=== PATIENT | female | born 1985 | race Caucasian/White ===

== ENCOUNTER 2020-01-03 23:29 | Emergency (ER) | payer OTHER, MEDICAID, SELFPAY ==
[2020-01-03 23:34] VITALS: BP 131/86; PULSE 135; RESP 16; TEMP 36.2; O2SAT 96
--- NOTE | 2020-01-03 23:47 | ED.NAVMDI ---
HPI - Nausea/Vomiting/Diarrhea General Stated complaint: n/v, 9 weeks Time Seen by Provider: 01/03/20 23:44 Source: patient and RN notes reviewed Mode of arrival: ambulatory Limitations: no limitations History of Present Illness HPI Narrative: A 34 y/o female, who is 9 weeks gravid, presents to the ED with worsening N/V for the past week. She states that this is her second but that during her last one her N/V was not nearly as severe. She reports associated sore throat, decreased urine output, chills, and diaphoresis. She notes that eating and drinking aggravates her pain. She also notes that her LNMP was on 11/01/2019. She denies any ABD pain, diarrhea, vaginal bleeding, vaginal discharge, dysuria, rhinorrhea, nasal congestion, fevers, or SOB. MD elicited complaint: nausea and vomiting Onset (ago): week(s) (1) Associated nausea: Yes Associated abdominal pain: No Location of pain: none Exacerbating factors: eating (and drinking) Associated symptoms: diaphoresis and other (sore throat, decreased urine output, and chills) Related Data Allergies Allergy/AdvReac Type Severity Reaction Status Date / Time No Known Allergies Allergy Unverified 01/03/20 23:37 Review of Systems Review of Systems: All systems reviewed & are unremarkable except as noted in HPI and below Constitutional: Constitutional: Reports chills, Denies fever(s) and Reports other (diaphoresis) ENT: Denies nasal congestion, Denies nasal discharge and Reports sore throat Respiratory: Respiratory: Denies dyspnea Gastrointestinal: Gastrointestinal: Denies abdominal pain, Denies diarrhea, Reports nausea and Reports vomiting Genitourinary: Genitourinary: Denies abnormal vaginal bleeding, Denies dysuria, Denies vaginal discharge and Reports other (decreased urine output) PMFSH Past Medical History Medical History Healthy female Surgical History Surgical History No history of previous surgery Social History Social History Smoking status: Never smoker Exam Const: General: cooperative, no acute distress and alert Nutritional Appearance: well nourished Orientation/consciousness: patient oriented x3 Limitations: no limitations HENMT: Mouth: Yes lip normal and Yes dry mucous membranes (slightly) Resp: Effort & Inspection: normal respiratory effort Auscultation: clear to auscultation bilaterally Cardio: Rate: tachycardic Rhythm: regular rhythm Heart sounds: no murmurs GI: GI Palp: Yes Soft to palpation and No Tenderness to palpation present (GI) Auscultation: normal bowel sounds Skin: General skin exam: normal color Neuro: General: patient oriented x3 Cognition (Neuro): normal cognition Speech: normal speech Extrem: General: normal to inspection, full ROM and no clubbing, cyanosis or edema Psych: Mental Status: mental status grossly normal Affect: normal affect Attitude: cooperative Course Course Emergency Course: Patient given 3 L of IV fluid with 1 L containing dextrose 5% due to significant ketones and acidosis noted on chemistry. Patient tachycardic, but feeling much improvement in her symptoms and heart rate did decrease significantly with IV fluids. Heart rate at time of discharge instructions low 100s. Patient tolerating oral hydration without difficulty. Patient up to the bathroom a few times with good urine output. Will discharge home. Advised importance of close [employer]IST follow-up and to call the office for seen in the morning. Vital Signs Vital signs: Vital Signs Temperature 97.2 F L 01/03/20 23:34 Pulse Rate 135 H 01/03/20 23:34 Respiratory Rate 16 01/03/20 23:34 Blood Pressure 131/86 01/03/20 23:34 Pulse Oximetry 96 01/03/20 23:34 Temperature 97.2 F L 01/03/20 23:34 Pulse Rate 114 H 01/04/20 00:10 Respiratory Rate 16 01/03/20 23:34 Blood Pressure 119/81
[2020-01-04] MEDS: METOCLOPRAMIDE HCL INJ 10 MG/2 ML VIAL IV PUSH (00:05)
[2020-01-04] MEDS: LACTATED RINGERS 1,000 ML 999 ML IV CONT ×2 (00:05)
[2020-01-04 00:09] VITALS: BP 111/70; PULSE 105
[2020-01-04 00:10] VITALS: BP 100/61; BP 119/81; PULSE 102; PULSE 114
[2020-01-04 00:27] LABS: Basophils Percent Auto 0.2 % (0.2-1.2); Hematocrit 41.6 % (37.0-47.0); Hemoglobin 14.4 g/dL (12.0-15.0); Immature Granulocyte Absolute 0.04 K/mm3 (0.00-0.031); Immature Granulocyte Percent A 0.3 % (0-0.5); Lymphocytes Absolute Auto 1.88 K/mm3 (0.9-3.2); Lymphocytes Percent Auto 15.6 % (18.3-44.2); Mean Corpuscular HGB Conc 34.6 g/dl (32-36); Mean Corpuscular Hemoglobin 30.4 pg (26-34); Mean Corpuscular Volume 87.8 fl (80-100); Mean Platelet Volume 10.9 fl (7.4-10.4); Monocytes Absolute Auto 0.5 K/mm3 (0.1-0.6); Monocytes Percent Auto 3.9 % (2.6-8.5); Neutrophils Absolute Auto 9.6 K/mm3 (1.3-6.7); Platelet Count Result 242 k/mm3 (150-375); Red Blood Count 4.74 M/mm3 (4.2-5.4); Red Cell Distribution Width 11.6 % (11.5-14.5); White Blood Count 12.1 K/mm3 (4.5-10.0)
[2020-01-04 00:30] LABS: Alanine Aminotransferase 45 U/L (4-35); Albumin Level 4.6 g/dL (3.5-5.1); Alkaline Phosphatase 66 U/L (38-126); Aspartate Amino Transferase 31 U/L (14-36); Bilirubin,Total 2.1 mg/dL (0.2-1.3); Blood Urea Nitrogen 6 mg/dL (7-17); Calcium 9.9 mg/dL (8.4-10.2); Carbon Dioxide 16 mmol/L (22-30); Chloride 102 mmol/L (98-107); Estimated Glomerular Filt Rate > 60; Glucose 97 mg/dL (65-105); Potassium 3.7 mmol/L (3.4-5.0); Sodium 133 mmol/L (137-145)
[2020-01-04 00:40] LABS: Add Urine Microscopic? YES; Appearance Urine Clear (Clear); Bacteria Urine Trace /hpf; Bilirubin Urine Negative (Negative); Blood Urine 1+ (Negative); Color Urine Amber (Yellow); Glucose Urine UA Negative (Negative); Ketones Urine 2+ mg/dL (Negative); Leukocyte Esterase Ur Trace LEU/UL (Negative); Mucus Urine Rare /lpf; Nitrate Urine Negative (Negative); Protein Urine 2+ mg/dL (Negative); RBC Urine 0-2 /hpf (0-2); Specific Grav Ur 1.026 (1.001-1.035); Squamous Epithelial Cell Urine Moderate /hpf (Few)
[2020-01-04] MEDS: DEXTROSE 5%/LACTATED RINGERS 1,000 ML 1000 ML IV CONT (01:03)
[2020-01-04 02:50] VITALS: BP 111/80; PULSE 97; RESP 18; O2SAT 98
== END 2020-01-04 02:52 | disposition home or self-care (01) ==
PROVIDERS: Emergency Provider Emergency Medicine
DX: O21.9 Vomiting of pregnancy, unspecified (principal); O99.281 Endocrine, nutritional and metabolic diseases complicating pregnancy, first trimester; E86.0 Dehydration; Z3A.09 9 weeks gestation of pregnancy
CPT/HCPCS: 36415; 80053; 81001; 85025; 87086; 87088; 96361; 96374; 99284; J2765; J7120; J7121

== ENCOUNTER 2020-01-07 08:26 | Emergency (ER) | payer OTHER, MEDICAID, SELFPAY ==
[2020-01-07] VITALS (15 sets, daily range): BP systolic 94–123; BP diastolic 67–92; PULSE 84–155; RESP 13–24; TEMP 36.2; O2SAT 97–100
--- NOTE | ~2020-01-07 | US_ITS ---
EXAMINATION: US OB <= 14 weeks fetus DATE: 01/07/2020 INDICATION: Vaginal bleeding in . TECHNIQUE: Real-time transabdominal pelvic ultrasound was performed. COMPARISON: None. FINDINGS: The uterus measures 11.3 x 6.5 x 8.0 cm. There is an intrauterine gestational sac. The crown r ump length measures 3.4 cm, which correlates with an estimated gestational age of 10 weeks and 2 day( s) (+/-) 6 day(s). heart motion is identified measuring 180 beats per minute (bpm) by M-mode Do ppler. The right ovary measures 3.0 x 1.8 x 2.7 cm. The left ovary measures 2.2 x 1.2 x 2.4 cm. There is no free fluid in the pelvis. IMPRESSION: 1. Single living intrauterine gestation with estimated date of delivery of 08/02/2020. Reviewed, dictated and finalized at location A.
--- NOTE | 2020-01-07 08:57 | ED.NAVMDI ---
HPI - Nausea/Vomiting/Diarrhea General Chief complaint: Vaginal Bleeding Stated complaint: 10 wks preg/vag bleeding/vomiting blood Time Seen by Provider: 01/07/20 08:33 Source: patient Mode of arrival: ambulatory Limitations: no limitations History of Present Illness HPI Narrative: Patient that is 10 weeks gravid, presents with chief complaint of persistent vomiting due to . Patient states that her vomiting keeps her from being able to keep down fluids or fluids. Patient reports that food exacerbates her symptoms. Patient was prescribed Reglan at her last visit to this ER 01-03-20. Patient states that she has attempted to take the Reglan however she vomits it back up. Patient states that her throat is sore and she has noticed a few streaks of blood in her vomit. Patient denies persistently vomiting blood. Patient states she was not prescribed any rectal suppositories. Patient states that she called the DYNAMICIST office but was told that she would not be able to see Dr. Salas sooner than 2 weeks but she was opted to see Dr. Avery to which she declined. Patient states she has not had an DYNAMICIST appointment or an ultrasound to evaluate the status of her fetus. Patient states that yesterday she began having light vaginal bleeding and cramping. Patient reports the bleeding was bright red in color and when she stood up she noticed a few very small blood clots. Patient is actually had to use 2 menstrual pads yesterday. She denies of bleeding behavior today. Patient states that this is her third 1 resulting in live 1 resulting in miscarriage. Related Data Allergies Allergy/AdvReac Type Severity Reaction Status Date / Time No Known Allergies Allergy Verified 01/07/20 08:43 Review of Systems Review of Systems: Narrative: CONSTITUTIONAL: Denies fever, chills, or sweats. EYES: Denies visual changes, redness, or discharge. ENT: Denies rhinorrhea, congestion, sore throat, or otalgia. CARDIOVASCULAR: Denies chest pain, palpitations, or edema. RESPIRATORY: Denies cough or dyspnea. GASTROINTESTINAL: Reports nausea, vomiting, denies abdominal pain or diarrhea. GENITOURINARY: Reports vaginal bleeding and cramping denies dysuria or hematuria. SKIN: Denies rash or itching. MUSCULOSKELETAL: Denies back pain, joint pain, or myalgia. NEUROLOGIC: Denies headache, numbness, dizziness, or weakness. PSYCHIATRIC: Denies anxiety or depression. [facility] Social History Social History Smoking status: Never smoker Gender identity (if verbalized by the patient): Female Exam Narrative: Exam Narrative: GENERAL: Well-appearing, well-nourished, and in no acute distress. Patient is not actively vomiting. Patient up and ambulating around room prior to evaluation. HEAD: Normocephalic, atraumatic. EYES: PERRLA and EOMI. ENT: Nares clear, no rhinorrhea or epistaxis. Mucous membranes moist. Oropharynx without tonsillar hypertrophy exudate or other lesions. Bilateral TMs pearly samuels nonbulging. Mucous membranes dry. No signs of any blood noted to the patient oropharynx. NECK: Range of motion intact. No outward signs of injury. CHEST: Clear to auscultation. No respiratory distress. No wheezes rales or rhonchi HEART: Tachycardic. no murmur heard. Normal peripheral pulses. ABDOMEN: Soft, nontender, nondistended, normal active bowel sounds. EXTREMITIES: Normal range of motion. No edema. SKIN: Warm, dry, no rash. NEURO: No focal deficits. Alert and oriented x3. PSYCH: Normal mood and affect. Course Course Emergency Course: Patient is very orthostatic. Fluids initiated. Reviewed patient's note from 01/02-07/17 and she was at that time as well and received 3 liters of fluid prior to discharge. Vital Signs Vital signs: Vital Signs Temperature 97.1 F L 01/07/20 08:37 Pulse Rate 133 H 01/07/20 08:37 Respiratory Rate 23 H 01/07/20 08:37 Blood Pressure 115/92 H 01/07/20 08:37 Pulse Oximetry 99
[2020-01-07 09:09] LABS: Basophils Percent Auto 0.2 % (0.2-1.2); Hematocrit 42.7 % (37.0-47.0); Hemoglobin 14.8 g/dL (12.0-15.0); Immature Granulocyte Absolute 0.03 K/mm3 (0.00-0.031); Immature Granulocyte Percent A 0.3 % (0-0.5); Lymphocytes Absolute Auto 1.61 K/mm3 (0.9-3.2); Lymphocytes Percent Auto 15.8 % (18.3-44.2); Mean Corpuscular HGB Conc 34.7 g/dl (32-36); Mean Corpuscular Hemoglobin 30.5 pg (26-34); Mean Corpuscular Volume 87.9 fl (80-100); Mean Platelet Volume 10.9 fl (7.4-10.4); Monocytes Absolute Auto 0.4 K/mm3 (0.1-0.6); Monocytes Percent Auto 4.2 % (2.6-8.5); Neutrophils Absolute Auto 8.1 K/mm3 (1.3-6.7); Neutrophils Percent Auto 79.5 % (45.5-73.1); Platelet Count Result 228 k/mm3 (150-375); Red Blood Count 4.86 M/mm3 (4.2-5.4); Red Cell Distribution Width 11.8 % (11.5-14.5); White Blood Count 10.2 K/mm3 (4.5-10.0)
[2020-01-07] MEDS: METOCLOPRAMIDE HCL INJ 10 MG/2 ML VIAL IV PUSH (09:44)
[2020-01-07] MEDS: SODIUM CHLORIDE 0.9% IV 1,000 ML 999 ML IV CONT ×2 (09:45→11:34)
--- NOTE | 2020-01-07 11:20 | PC.NURSE ---
This RN called again, about adding on CMP. Lab states I'll remind her again about adding it on.
[2020-01-07 11:32] LABS: Alanine Aminotransferase 76 U/L (4-35); Albumin Level 4.5 g/dL (3.5-5.1); Alkaline Phosphatase 71 U/L (38-126); Aspartate Amino Transferase 51 U/L (14-36); Bilirubin,Total 1.3 mg/dL (0.2-1.3); Blood Urea Nitrogen 4 mg/dL (7-17); Calcium 9.7 mg/dL (8.4-10.2); Carbon Dioxide 14 mmol/L (22-30); Chloride 102 mmol/L (98-107); Estimated Glomerular Filt Rate > 60; Glucose 88 mg/dL (65-105); Potassium 3.9 mmol/L (3.4-5.0); Sodium 133 mmol/L (137-145)
--- NOTE | 2020-01-07 11:34 | PC.NURSE ---
Pt refused D5 infusion, states that she does not want to stay here for 5 hours for infusion. EDP was notified.
[2020-01-07 12:22] LABS: Add Urine Microscopic? YES; Appearance Urine Cloudy (Clear); Bacteria Urine Trace /hpf; Bilirubin Urine Negative (Negative); Blood Urine 3+ (Negative); Color Urine Yellow (Yellow); Glucose Urine UA Negative (Negative); Ketones Urine 2+ mg/dL (Negative); Leukocyte Esterase Ur Negative LEU/UL (Negative); Mucus Urine Few /lpf; Nitrate Urine Negative (Negative); Protein Urine 2+ mg/dL (Negative); Specific Grav Ur 1.024 (1.001-1.035); Squamous Epithelial Cell Urine Few /hpf (Few); Urobilinogen Urine Negative mg/dL (<2.0)
== END 2020-01-07 13:18 | disposition home or self-care (01) ==
PROVIDERS: Physician Assistant; Emergency Provider Emergency Medicine
DX: O21.0 Mild hyperemesis gravidarum (principal); O20.9 Hemorrhage in early pregnancy, unspecified; Z3A.10 10 weeks gestation of pregnancy
CPT/HCPCS: 36415; 76801; 80053; 81001; 84702; 85025; 96361; 96374; 99284; J2765; J7030

== ENCOUNTER 2020-12-20 09:45 | Outpatient (CLI) | payer OTHER, SELFPAY ==
[2020-12-20 10:16] VITALS: BP 150/92; PULSE 89
[2020-12-20 10:29] LABS: Basophils Percent Auto 0.1 % (0.2-1.2); Eosinophils Absolute Auto 0.1 K/mm3 (0-0.3); Eosinophils Percent Auto 0.6 % (0-4.4); Hematocrit 36.9 % (37.0-47.0); Hemoglobin 12.6 g/dL (12.0-15.0); Immature Granulocyte Absolute 0.07 K/mm3 (0.00-0.031); Immature Granulocyte Percent A 0.9 % (0-0.5); Lymphocytes Absolute Auto 1.44 K/mm3 (0.9-3.2); Lymphocytes Percent Auto 18.3 % (18.3-44.2); Mean Corpuscular HGB Conc 34.1 g/dl (32-36); Mean Corpuscular Hemoglobin 30.7 pg (26-34); Mean Platelet Volume 10.9 fl (7.4-10.4); Monocytes Absolute Auto 0.5 K/mm3 (0.1-0.6); Monocytes Percent Auto 5.9 % (2.6-8.5); Neutrophils Absolute Auto 5.8 K/mm3 (1.3-6.7); Neutrophils Percent Auto 74.2 % (45.5-73.1); Platelet Count Result 164 k/mm3 (150-375); Red Cell Distribution Width 13.5 % (11.5-14.5); White Blood Count 7.9 K/mm3 (4.5-10.0)
[2020-12-20 10:31] VITALS: BP 144/88; PULSE 81
[2020-12-20 10:40] LABS: Alanine Aminotransferase 9 U/L (4-35); Albumin Level 3.2 g/dL (3.5-5.1); Alkaline Phosphatase 89 U/L (38-126); Anion Gap 3 mmol/L (8-16); Aspartate Amino Transferase 19 U/L (14-36); Bilirubin,Total 0.6 mg/dL (0.2-1.3); Blood Urea Nitrogen 4 mg/dL (7-17); Carbon Dioxide 24 mmol/L (22-30); Chloride 107 mmol/L (98-107); Estimated Glomerular Filt Rate > 60; Glucose 78 mg/dL (65-105); Potassium 3.9 mmol/L (3.4-5.0); Sodium 134 mmol/L (137-145); Uric Acid 2.7 mg/dL (2.5-7.5)
[2020-12-20 10:46] VITALS: BP 134/94; PULSE 83
[2020-12-20 11:01] VITALS: BP 134/90; PULSE 88
[2020-12-20 11:16] VITALS: BP 143/90; PULSE 84
[2020-12-20 11:18] LABS: Creatinine Urine 61.9 mg/dL; Total Protein Urine Random 38 mg/dL; Ur Ttl Prot Creatinine Ratio 0.61 mg/mg (0-0.20)
--- NOTE | 2020-12-20 11:30 | PC.NURSE ---
Called Jax Pineda CNM with lab results and BPs. Informed of variable noted on tracing, but since reactive. Gestational age of 29.6weeks.
[2020-12-20 11:31] VITALS: BP 152/93; PULSE 72
== END 2020-12-20 11:40 | disposition home or self-care (01) ==
LOC: ANHOBOP 09:51 → ANHOBPP 10:02
PROVIDERS: Advanced Practice Midwife; Visit Provider Obstetrics & Gynecology
DX: O13.9 Gestational [pregnancy-induced] hypertension without significant proteinuria, unspecified trimester (principal); Z3A.00 Weeks of gestation of pregnancy not specified
CPT/HCPCS: 36415; 59025; 80053; 82570; 84156; 84550; 85025; 99199

== ENCOUNTER 2020-12-21 16:16 | Outpatient (NON) | payer OTHER, SELFPAY ==
[2020-12-21 16:37] VITALS: BMI 35.2
[2020-12-21 18:49] LABS: Collection Time Urine 24 HOURS
[2020-12-21 18:51] LABS: Patient Weight 186 Lbs; Total Volume 24 Hour Urine 1000 ml
[2020-12-21 18:57] LABS: Total Protein Urine 24 Hr 290 MG/DAY (28-141); Total Protein Urine Random 29 mg/dL
[2020-12-21 18:59] LABS: Creatinine Clearance Urine 90.8 ml/min (75-125)
== END 2020-12-21 16:17 ==
LOC: ANHOBOP 16:25
PROVIDERS: Visit Provider Advanced Practice Midwife
DX: O13.9 Gestational [pregnancy-induced] hypertension without significant proteinuria, unspecified trimester (principal); Z3A.00 Weeks of gestation of pregnancy not specified
CPT/HCPCS: 81050; 82575; 84156

== ENCOUNTER 2020-12-27 17:42 | Inpatient (IN) | payer OTHER, SELFPAY ==
[2020-12-27] VITALS (37 sets, daily range): BP systolic 118–170; BP diastolic 72–118; PULSE 73–93; TEMP 36.6; BMI 34.5
--- NOTE | 2020-12-27 16:16 | OBADM ---
This patient, Triny Finch, admitted to the OB room OB Post 117 for observation. Patient/family oriented to hospital policies and general routines including ID bracelet, bed and alarms, visiting hours, pain management, procedures, bathroom and other care routines, personal items, smoking policy, room service/diet, and visiting hours. Patient/Family are encouraged to report perceived risks to care and to ask questions if they do not understand what they are told or what they should do.
--- NOTE | 2020-12-27 16:50 | PC.NURSE ---
Jax Pineda CNM notified in person of patient elevated BP on arrival. Order to follow hypertension protocol and notify Dr. Hector.
--- NOTE | 2020-12-27 16:53 | PC.NURSE ---
Dr. Hector notified of patient elevated BP's on arrival. Order for 200mg of oral labetalol in addition to hypertension protocol medications.
[2020-12-27 16:57] LABS: Basophils Percent Auto 0.2 % (0.2-1.2); Eosinophils Absolute Auto 0.1 K/mm3 (0-0.3); Eosinophils Percent Auto 0.6 % (0-4.4); Hematocrit 34.7 % (37.0-47.0); Hemoglobin 11.9 g/dL (12.0-15.0); Immature Granulocyte Absolute 0.04 K/mm3 (0.00-0.031); Immature Granulocyte Percent A 0.5 % (0-0.5); Lymphocytes Absolute Auto 1.73 K/mm3 (0.9-3.2); Lymphocytes Percent Auto 20.4 % (18.3-44.2); Mean Corpuscular HGB Conc 34.3 g/dl (32-36); Mean Corpuscular Hemoglobin 30.4 pg (26-34); Mean Corpuscular Volume 88.7 fl (80-100); Mean Platelet Volume 11.1 fl (7.4-10.4); Monocytes Absolute Auto 0.4 K/mm3 (0.1-0.6); Monocytes Percent Auto 5.2 % (2.6-8.5); Neutrophils Absolute Auto 6.2 K/mm3 (1.3-6.7); Neutrophils Percent Auto 73.1 % (45.5-73.1); Platelet Count Result 159 k/mm3 (150-375); Red Blood Count 3.91 M/mm3 (4.2-5.4); Red Cell Distribution Width 13.4 % (11.5-14.5); White Blood Count 8.5 K/mm3 (4.5-10.0)
[2020-12-27 17:04] LABS: Add Urine Microscopic? YES; Appearance Urine Clear (Clear); Bacteria Urine Trace /hpf; Bilirubin Urine Negative (Negative); Blood Urine Negative (Negative); Color Urine Straw (Yellow); Glucose Urine UA Negative (Negative); Ketones Urine 1+ mg/dL (Negative); Leukocyte Esterase Ur 2+ LEU/UL (NEGATIVE); Mucus Urine Rare /lpf; Nitrate Urine Negative (Negative); Protein Urine 2+ mg/dL (Negative); Specific Grav Ur 1.008 (1.001-1.035); Squamous Epithelial Cell Urine Many /hpf (Few); Urobilinogen Urine Negative mg/dL (<2.0)
[2020-12-27 17:07] LABS: Creatinine Urine 39.4 mg/dL; Total Protein Urine Random 70 mg/dL; Ur Ttl Prot Creatinine Ratio 1.78 mg/mg (0-0.20)
[2020-12-27 17:15] LABS: Alanine Aminotransferase 10 U/L (4-35); Albumin Level 3.1 g/dL (3.5-5.1); Alkaline Phosphatase 95 U/L (38-126); Anion Gap 7 mmol/L (8-16); Aspartate Amino Transferase 19 U/L (14-36); Bilirubin,Total 0.6 mg/dL (0.2-1.3); Blood Urea Nitrogen 4 mg/dL (7-17); Calcium 8.4 mg/dL (8.4-10.2); Carbon Dioxide 21 mmol/L (22-30); Chloride 107 mmol/L (98-107); Estimated Glomerular Filt Rate > 60; Glucose 88 mg/dL (65-105); Potassium 3.4 mmol/L (3.4-5.0); Sodium 135 mmol/L (137-145); Uric Acid 2.6 mg/dL (2.5-7.5)
[2020-12-27] MEDS: LABETALOL HCL INJ 100 MG/20 ML VIAL 20 MG IV PUSH ×2 (17:20→18:03)
[2020-12-27] MEDS: LABETALOL HCL 100 MG TABLET 200 MG PO (17:28)
--- NOTE | 2020-12-27 17:30 | PM.IMHP ---
H&P: HPI History of Present Illness Date/Time: 12/27/20 17:30 Chief Complaint: hypertension Narrative: Triny Finch is a 35 year old female who has been monitored for elevated blood pressure and proteinuria. Denies mariano, visual changes and epigastric pain, mild bilateral ankle edema. Pt present to LD after office bp 170/110, rpted manually and was the same, continued severe range pressure in LD, labs ordered and no changes, pcr continues to be elevated, rpt 24 hour urine in progress. Review of Systems Review of Systems: All systems reviewed & are unremarkable except as noted in HPI and below [facility] Past Medical History Medical History (Updated 12/27/20 @ 17:34 by Dara Pineda CNM) Healthy female Surgical History Surgical History No history of previous surgery Social History Social History Smoking status: Never smoker Gender identity (if verbalized by the patient): Female Meds Home Medications and Allergies Home Medications Medication Instructions Recorded Confirmed Type metoclopramide HCl [Reglan] 10 mg PO Q6H PRN #20 tablet 01/04/20 Rx metoclopramide HCl 10 mg PO Q6H PRN #30 tablet 01/07/20 Rx ondansetron 4 mg PO Q8H PRN #30 tablet 01/07/20 Rx Allergies Allergy/AdvReac Type Severity Reaction Status Date / Time No Known Allergies Allergy Verified 01/07/20 08:43 Vital Signs Vital Signs - 24 hr 12/27/20 16:40 12/27/20 16:45 12/27/20 16:46 Pulse Rate 93 85 86 Blood Pressure 144/118 H 163/98 H 165/102 H 12/27/20 17:16 12/27/20 17:20 12/27/20 17:23 Pulse Rate 74 86 81 Blood Pressure 161/105 H 150/102 H 12/27/20 17:26 12/27/20 17:28 12/27/20 17:30 Pulse Rate 88 85 Blood Pressure 151/100 H 170/91 H Exam Const: General: cooperative Nutritional Appearance: average body habitus Orientation/consciousness: patient oriented x3 Neuro: General: patient oriented x3 Speech: normal speech Extrem: General: normal to inspection Psych: Appearance: grossly normal Affect: normal affect Attitude: cooperative Thought process: Normal thought process present Thought content: Yes Normal thought content present Insight: Good insight present (Psych) Judgement: Good judgement present (Psych) H&P: Results Labs Labs: Short CBC 12/27/20 Range/Units 16:46 WBC 8.5 (4.5-10.0) K/mm3 Hgb 11.9 L (12.0-15.0) g/dL Hct 34.7 L (37.0-47.0) % Plt Count 159 (150-375) k/mm3 BMP 12/27/20 16:46 Sodium 135 L Potassium 3.4 Chloride 107 Carbon Dioxide 21 L BUN 4 L Creatinine 0.40 L Glucose 88 Calcium 8.4 Liver Function 12/27/20 Range/Units 16:46 Total Bilirubin 0.6 (0.2-1.3) mg/dL AST 19 (14-36) U/L ALT 10 (4-35) U/L Alkaline Phosphatase 95 (38-126) U/L Albumin 3.1 L (3.5-5.1) g/dL Urine 12/27/20 Range/Units 16:46 Urine Color Straw (Yellow) Urine Appearance Clear (Clear) Urine pH 7.0 (5.0-9.0) Ur Specific [place] 1.008 (1.001-1.035) Urine Protein 2+ H (Negative) mg/dL Urine Glucose (UA) Negative (Negative) mg/dL Assessment and Plan Assessment and plan (1) Gestational hypertension affecting second : Code(s): O13.9 - Gestational [-induced] hypertension without significant proteinuria, unspecified trimester Status: Acute (2) Proteinuria affecting : Qualifiers: Trimester: third trimester Qualified Code(s): O12.13 - Gestational proteinuria, third trimester Code(s): O12.10 - Gestational proteinuria, unspecified trimester Status: Acute Additional Plan 1. GHTN 20mg IV labetalol 200mg oral labetalol 2. proteinuria Plan rpt 24 hour urine Plan to monitor overnight and will continue to adjust medications, spoke with and reviewed.
--- NOTE | 2020-12-27 17:35 | PC.NURSE ---
Jax Pineda CNM at patient bedside to discuss plan of care. Plan of care discussed with patient, patient states understanding and denies questions.
--- NOTE | 2020-12-27 17:58 | PC.NURSE ---
Notified Jax Pineda CNM on patient elevated BPs, order to give 20mg IV labetalol now.
--- NOTE | 2020-12-27 18:40 | PC.NURSE ---
Pt resting quietly without complaints. Pt. denies any headache, blurred vision or abdominal pain. Vital signs as noted.
[2020-12-27] MEDS: ZOLPIDEM TARTRATE (*CRX) 5 MG TABLET PO (22:16)
[2020-12-28] VITALS (19 sets, daily range): BP systolic 115–149; BP diastolic 66–98; PULSE 72–92; TEMP 36.6; BMI 34.9
--- NOTE | 2020-12-28 04:54 | PC.NURSE ---
Pt is sleeping well. Voices no complaints or concerns.
[2020-12-28] MEDS: LABETALOL HCL 100 MG TABLET 200 MG PO ×2 (05:26→13:18)
--- NOTE | 2020-12-28 07:24 | PC.NURSE ---
0700--Pt denies OBREGON, blurred vision, epigastric pain. Mild edema in ankles bilaterally. No complaints noted.
--- NOTE | 2020-12-28 07:30 | PC.NURSE ---
0725--Jax Pineda at bedside to discuss plan of care. Will consult with MFM and follow up.
--- NOTE | 2020-12-28 07:30 | PM.OBPNLAB ---
Pain Control Date/time seen: 12/28/20 07:30 Pt rested comfortably over night with normotensive bp, this am after labetalol pressures around 140'/90's. pt denies headache, visual changes, epigastric pain. physical exam trace bilateral pedal/ankle edema a/p: HTN proteinuria growth 15% (HC <10%) at [facility] last month continue to monitor bp, if stable consider discharge this evening with labetalol TID
[2020-12-28] MEDS: BETAMETHASONE SOD PHOS/ACETATE 30 MG/5 ML VIAL 12 MG IM (09:32)
[2020-12-28] MEDS: MULTIVIT/MIN/PREN/FOL AC/IRON TABLET 1 TAB PO (09:33)
--- NOTE | 2020-12-28 12:04 | PC.NURSE ---
1145--Pt sleeping comfortably. No interventions at this time.
--- NOTE | 2020-12-28 14:34 | PC.NURSE ---
1430--Kareen called for update; BP's reported. Additional orders will be given after 24hour urine is turned in.
[2020-12-28 17:03] LABS: Collection Time Urine 24 HOURS
[2020-12-28 17:04] LABS: Patient Weight 185 Lbs; Total Volume 24 Hour Urine 2200 ml
[2020-12-28 17:12] LABS: Creatinine Clearance Urine 215.1 ml/min (75-125); Creatinine Urine 59.3 mg/dL
[2020-12-28 17:40] LABS: Total Protein Urine 24 Hr 1144 MG/DAY (28-141); Total Protein Urine Random 52 mg/dL
--- NOTE | 2020-12-30 07:28 | PM.OBDSVD ---
DS: Admitting Diagnosis Admitting Diagnosis Admitting Diagnosis: HTN OB - DS: Summary OB Procedures : NST and PTL Mgmt OB Procedures Intrapartum: Other OB Procedures: : Other Time Spent with Patient Time attestation: Total time spent providing and/or coordinating discharge services: Discharge Plan Discharge Attending physician on discharge: Soledad Hector Consulting providers: Dara Pineda Discharging Clinician: Dara Pineda Anticipated Discharge Date/Time: 12/28/20 17:29 Patient Disposition: Home, Self-Care Activity: as tolerated Diet: as tolerated and regular Stand Alone Forms: General Discharge Information Follow-up/Referrals: Soledad Hector MD [Physician] - Discharge Medications: Continued ondansetron 4 mg tablet,disintegrating 4 mg PO Q8H PRN (Reason: nausea and vomiting) Qty: 30 RF: 0 metoclopramide HCl 10 mg tablet 10 mg PO Q6H PRN (Reason: nausea and vomiting) Qty: 30 RF: 0 metoclopramide HCl [Reglan] 10 mg tablet 10 mg PO Q6H PRN (Reason: nausea and vomiting) Qty: 20 RF: 0 Date of admission: 12/28/20 10:19 Primary Care Provider: PHYSICIAN,OUTPLACEMENT CONSULTANT Admitting Provider: Soledad Hector Attending physician on admission: Soledad Hector Condition: Stable
== END 2020-12-28 17:31 | disposition home or self-care (01) | DRG 566 ==
LOC: ANHOBOP 17:42 → ANHOBPP 17:42
PROVIDERS: Advanced Practice Midwife; Admitting Provider Obstetrics & Gynecology; Visit Provider Obstetrics & Gynecology
DX: O13.3 Gestational [pregnancy-induced] hypertension without significant proteinuria, third trimester (principal); O12.13 Gestational proteinuria, third trimester; Z3A.30 30 weeks gestation of pregnancy
CPT/HCPCS: 36415; 59025; 80053; 81001; 81050; 82570; 82575; 84156; 84550; 85025; 87086; A9270; J0702

== ENCOUNTER 2020-12-29 09:35 | Outpatient (RCR) | payer OTHER, SELFPAY ==
[2020-12-29] MEDS: BETAMETHASONE SOD PHOS/ACETATE 30 MG/5 ML VIAL 12 MG IM (09:46)
== END 2021-01-02 08:29 | disposition home or self-care (01) ==
LOC: ANHOBOP 09:35
PROVIDERS: Visit Provider Obstetrics & Gynecology
DX: O36.8990 Maternal care for other specified fetal problems, unspecified trimester, not applicable or unspecified (principal); Z3A.00 Weeks of gestation of pregnancy not specified
CPT/HCPCS: 96372; J0702

== ENCOUNTER 2021-01-04 13:41 | Inpatient (IN) | payer OTHER, SELFPAY ==
[2021-01-04] VITALS (24 sets, daily range): BP systolic 136–170; BP diastolic 81–106; PULSE 79–94; TEMP 36.8–37.3
--- NOTE | ~2021-01-04 | US_ITS ---
EXAMINATION: 1. US OB follow up w BPP 2. US umbilical doppler DATE: 01/11/2021 08:06 INDICATION: Preeclampsia. Third trimester. TECHNIQUE: Real-time pelvic ultrasound was performed. COMPARISON: None. FINDINGS: There is a single living fetus in transverse lie with head to the mother's right. The placenta is an terior. heart rate is 149 beats per minute (bpm). The amniotic fluid index is 11.1 cm, which is normal. The following biometric data were obtained: Biparietal diameter (BPD): 8.2 cm; head circumference (HC): 29.2 cm; abdominal circumference (AC): 26 .7 cm; femur length (FL): 5.8 cm. These measurements are concordant. Estimated weight is 1676 g +/- 251 g, which correlates with 4th percentile when 03/01/21 is used as estimated date of delivery. As single measurements, these parameters are each equal to the following estimated gestational ages: BPD: 32 weeks 6 days. HC: 32 weeks 1 days. AC: 30 weeks 6 days. FL: 30 weeks 3 days. estimated gestational age based solely on measurements from this exam is 31 weeks 4 days +/- 2 weeks 1 days. Biophysical profile performed by the technologist: breathing (30 sec sustained breathing in 30 minutes): 2 out of 2 movement (3 gross body movements in 30 minutes): 2 out of 2 tone (one episode of [id number] limb movement): 2 out of 2 Amniotic fluid pocket (2 cm): 2 out of 2 Total score: 8 out of 8 Umbilical artery pulsed Doppler demonstrates a peak systolic to end-diastolic velocity ratio (S/D rat io) of 3.3 (5th percentile = 2.11, 95th percentile = 3.67). IMPRESSION: 1. Single living fetus in transverse lie. 2. Small for gestational age. Estimated weight is 1676 g +/- 251 g, which correlates with 4th p ercentile when 03/01/21 is used as estimated date of delivery. 3. Biophysical profile 8 out of 8. 4. Normal umbilical artery Doppler. Reviewed, dictated and finalized at location A. IMPRESSION: 1. Single living fetus in transverse lie. 2. Small for gestational age. Estimated weight is 1676 g +/- 251 g, which correlates with 4th percentile when 03/01/21 is used as estimated date of delive ry. 3. Biophysical profile 8 out of 8. 4. Normal umbilical artery Doppler.
[2021-01-04 14:20] LABS: Basophils Percent Auto 0.1 % (0.2-1.2); Eosinophils Absolute Auto 0.1 K/mm3 (0-0.3); Eosinophils Percent Auto 0.5 % (0-4.4); Hematocrit 39.6 % (37.0-47.0); Hemoglobin 13.2 g/dL (12.0-15.0); Lymphocytes Percent Auto 16.1 % (18.3-44.2); Mean Corpuscular HGB Conc 33.3 g/dl (32-36); Mean Corpuscular Hemoglobin 30.1 pg (26-34); Mean Corpuscular Volume 90.2 fl (80-100); Mean Platelet Volume 11.1 fl (7.4-10.4); Monocytes Absolute Auto 0.5 K/mm3 (0.1-0.6); Monocytes Percent Auto 5.3 % (2.6-8.5); Neutrophils Absolute Auto 7.6 K/mm3 (1.3-6.7); Platelet Count Result 174 k/mm3 (150-375); Red Blood Count 4.39 M/mm3 (4.2-5.4); Red Cell Distribution Width 13.6 % (11.5-14.5); White Blood Count 9.9 K/mm3 (4.5-10.0)
[2021-01-04 14:28] LABS: Add Urine Microscopic? YES; Appearance Urine Cloudy (Clear); Bacteria Urine Trace /hpf; Bilirubin Urine Negative (Negative); Blood Urine Negative (Negative); Color Urine Yellow (Yellow); Glucose Urine UA Negative (Negative); Ketones Urine Negative (Negative); Leukocyte Esterase Ur 3+ LEU/UL (NEGATIVE); Mucus Urine Few /lpf; Nitrate Urine Negative (Negative); Protein Urine 3+ mg/dL (Negative); Specific Grav Ur 1.013 (1.001-1.035); Squamous Epithelial Cell Urine Many /hpf (Few); Transitional Epi Cells Urine Rare /hpf (None Seen); Urobilinogen Urine Negative mg/dL (<2.0); WBC Urine 16-20 /hpf (0-3)
[2021-01-04 14:30] LABS: Creatinine Urine 58.1 mg/dL
[2021-01-04 14:32] LABS: Alanine Aminotransferase 12 U/L (4-35); Albumin Level 3.6 g/dL (3.5-5.1); Alkaline Phosphatase 115 U/L (38-126); Anion Gap 7 mmol/L (8-16); Aspartate Amino Transferase 20 U/L (14-36); Bilirubin,Total 0.9 mg/dL (0.2-1.3); Blood Urea Nitrogen 6 mg/dL (7-17); Calcium 9.3 mg/dL (8.4-10.2); Carbon Dioxide 23 mmol/L (22-30); Chloride 105 mmol/L (98-107); Estimated Glomerular Filt Rate > 60; Glucose 67 mg/dL (65-105); Potassium 4.3 mmol/L (3.4-5.0); Sodium 135 mmol/L (137-145); Uric Acid 2.6 mg/dL (2.5-7.5)
--- NOTE | 2021-01-04 15:14 | PC.NURSE ---
Called Jax Pineda CNM with pt status. Informed of lab results, BPs and reactive tracing. Will talk to Dr. Hector and call back.
--- NOTE | 2021-01-04 15:23 | PC.NURSE ---
Informed Jax Pineda CNM that pt states that she missed her 1330 dose of Labetalol. Instructed to give dose and monitor.
[2021-01-04 15:27] LABS: Total Protein Urine Random 262 mg/dL; Ur Ttl Prot Creatinine Ratio 4.51 mg/mg (0-0.20)
[2021-01-04] MEDS: LABETALOL HCL 100 MG TABLET 200 MG PO ×2 (15:27→21:16)
--- NOTE | 2021-01-04 15:35 | PC.NURSE ---
Jax Pineda CNM called. Discussed plan of care with Dr. Hector. Continue to monitor. Will come over to discuss plan of care with pt.
--- NOTE | 2021-01-04 17:00 | PC.NURSE ---
Jax Pineda CNM ok to leave [facility] and [facility] off.
--- NOTE | 2021-01-04 18:00 | PM.IMHP ---
H&P: HPI History of Present Illness Date/Time: 01/04/21 18:00 Chief Complaint: Preeclampsia Narrative: pt is a 35 y.o. female at 32 weeks gestation. diagnosed Preeclampsia, currently on 200mg labetalol BID,severe range pressures in office, per [facility] rec inpatient at [facility] until delivery at 34 weeks, pt today has refused transfer along with her . Labs stable, except for 24 hour urine >1000, bp currently 130's/80's, aand asymptomatic Review of Systems Review of Systems: All systems reviewed & are unremarkable except as noted in HPI and below [facility] Past Medical History Medical History (Updated 12/27/20 @ 17:34 by Dara Pineda CNM) Healthy female Surgical History Surgical History No history of previous surgery Social History Social History Smoking status: Never smoker Gender identity (if verbalized by the patient): Female Meds Home Medications and Allergies Home Medications Medication Instructions Recorded Confirmed Type metoclopramide HCl [Reglan] 10 mg PO Q6H PRN #20 tablet 01/04/20 12/27/20 Rx metoclopramide HCl 10 mg PO Q6H PRN #30 tablet 01/07/20 12/27/20 Rx ondansetron 4 mg PO Q8H PRN #30 tablet 01/07/20 12/27/20 Rx Allergies Allergy/AdvReac Type Severity Reaction Status Date / Time No Known Allergies Allergy Verified 01/07/20 08:43 Vital Signs Vital Signs - 24 hr 01/04/21 14:12 01/04/21 14:16 01/04/21 14:31 Temperature Pulse Rate 84 85 90 Blood Pressure 157/100 H 170/102 H 155/106 H 01/04/21 14:46 01/04/21 15:01 01/04/21 15:16 Temperature Pulse Rate 94 93 90 Blood Pressure 151/91 H 154/92 H 159/100 H 01/04/21 15:27 01/04/21 15:31 01/04/21 15:46 Temperature Pulse Rate 93 87 82 Blood Pressure 158/99 H 166/102 H 01/04/21 16:01 01/04/21 16:16 01/04/21 16:22 Temperature 37.3 C Pulse Rate 83 83 Blood Pressure 168/97 H 167/99 H 01/04/21 16:31 01/04/21 16:46 01/04/21 17:01 Temperature Pulse Rate 87 86 86 Blood Pressure 165/96 H 159/99 H 136/89 Exam Const: General: cooperative Limitations: no limitations Back/Spine/Pelvis: Back: no CVA tenderness Skin: General skin exam: normal color and no rashes or lesions noted Neuro: General: patient oriented x3 Speech: normal speech Gait exam (Neuro): Normal gait present Extrem: General: normal to inspection Left lower extremity: normal to inspection Psych: Appearance: grossly normal Affect: Anxious affect present Attitude: cooperative Thought content: Yes Normal thought content present Insight: Good insight present (Psych) Judgement: Good judgement present (Psych) H&P: Results Labs Labs: Short CBC 01/04/21 Range/Units 14:00 WBC 9.9 (4.5-10.0) K/mm3 Hgb 13.2 (12.0-15.0) g/dL Hct 39.6 (37.0-47.0) % Plt Count 174 (150-375) k/mm3 BMP 01/04/21 14:00 Sodium 135 L Potassium 4.3 Chloride 105 Carbon Dioxide 23 BUN 6 L Creatinine 0.40 L Glucose 67 Calcium 9.3 Liver Function 01/04/21 Range/Units 14:00 Total Bilirubin 0.9 (0.2-1.3) mg/dL AST 20 (14-36) U/L ALT 12 (4-35) U/L Alkaline Phosphatase 115 (38-126) U/L Albumin 3.6 (3.5-5.1) g/dL Urine 01/04/21 Range/Units 14:00 Urine Color Yellow (Yellow) Urine Appearance Cloudy H (Clear) Urine pH 6.0 (5.0-9.0) Ur Specific [place] 1.013 (1.001-1.035) Urine Protein 3+ H (Negative) mg/dL Urine Glucose (UA) Negative (Negative) mg/dL Assessment and Plan Additional Plan 1. 32 weeks gestation 2. Preeclampsia -labetalol TID -continue to monitor bp, q12 hour labs, monitor sxs Currently pt refuses transfer to [facility]
[2021-01-04] MEDS: ZOLPIDEM TARTRATE (*CRX) 5 MG TABLET PO (22:06)
[2021-01-05] VITALS (19 sets, daily range): BP systolic 126–163; BP diastolic 82–101; PULSE 78–93; RESP 16–18; TEMP 36.7–37.2; O2SAT 99
--- NOTE | 2021-01-05 00:10 | PM.IMHP ---
H&P: HPI History of Present Illness Date/Time: 01/05/21 00:10 Chief Complaint: preeclampsia PMFSH Past Medical History Medical History (Updated 01/05/21 @ 00:10 by Dara Pineda CNM) Healthy female Surgical History Surgical History No history of previous surgery Social History Social History Smoking status: Never smoker Gender identity (if verbalized by the patient): Female Meds Home Medications and Allergies Home Medications Medication Instructions Recorded Confirmed Type metoclopramide HCl [Reglan] 10 mg PO Q6H PRN #20 tablet 01/04/20 12/27/20 Rx metoclopramide HCl 10 mg PO Q6H PRN #30 tablet 01/07/20 12/27/20 Rx ondansetron 4 mg PO Q8H PRN #30 tablet 01/07/20 12/27/20 Rx Allergies Allergy/AdvReac Type Severity Reaction Status Date / Time No Known Allergies Allergy Verified 01/07/20 08:43 Vital Signs Vital Signs - 24 hr 01/04/21 14:12 01/04/21 14:16 01/04/21 14:31 Temperature Pulse Rate 84 85 90 Blood Pressure 157/100 H 170/102 H 155/106 H 01/04/21 14:46 01/04/21 15:01 01/04/21 15:16 Temperature Pulse Rate 94 93 90 Blood Pressure 151/91 H 154/92 H 159/100 H 01/04/21 15:27 01/04/21 15:31 01/04/21 15:46 Temperature Pulse Rate 93 87 82 Blood Pressure 158/99 H 166/102 H 01/04/21 16:01 01/04/21 16:16 01/04/21 16:22 Temperature 37.3 C Pulse Rate 83 83 Blood Pressure 168/97 H 167/99 H 01/04/21 16:31 01/04/21 16:46 01/04/21 17:01 Temperature Pulse Rate 87 86 86 Blood Pressure 165/96 H 159/99 H 136/89 01/04/21 18:01 01/04/21 19:00 01/04/21 19:01 Temperature 36.9 C Pulse Rate 83 79 Blood Pressure 138/86 154/81 H 01/04/21 20:01 01/04/21 21:01 01/04/21 21:16 Temperature Pulse Rate 83 80 80 Blood Pressure 156/103 H 166/81 H 01/04/21 22:01 01/04/21 22:43 Temperature Pulse Rate 82 90 Blood Pressure 145/84 H 145/99 H H&P: Results Labs Labs: Short CBC 01/04/21 Range/Units 14:00 WBC 9.9 (4.5-10.0) K/mm3 Hgb 13.2 (12.0-15.0) g/dL Hct 39.6 (37.0-47.0) % Plt Count 174 (150-375) k/mm3 BMP 01/04/21 14:00 Sodium 135 L Potassium 4.3 Chloride 105 Carbon Dioxide 23 BUN 6 L Creatinine 0.40 L Glucose 67 Calcium 9.3 Liver Function 01/04/21 Range/Units 14:00 Total Bilirubin 0.9 (0.2-1.3) mg/dL AST 20 (14-36) U/L ALT 12 (4-35) U/L Alkaline Phosphatase 115 (38-126) U/L Albumin 3.6 (3.5-5.1) g/dL Urine 01/04/21 Range/Units 14:00 Urine Color Yellow (Yellow) Urine Appearance Cloudy H (Clear) Urine pH 6.0 (5.0-9.0) Ur Specific [place] 1.013 (1.001-1.035) Urine Protein 3+ H (Negative) mg/dL Urine Glucose (UA) Negative (Negative) mg/dL Assessment and Plan Assessment and plan (1) Preeclampsia: Code(s): O14.90 - Unspecified pre-eclampsia, unspecified trimester Status: Acute
[2021-01-05 02:20] LABS: Hematocrit 35.4 % (37.0-47.0); Hemoglobin 11.9 g/dL (12.0-15.0); Mean Corpuscular HGB Conc 33.6 g/dl (32-36); Mean Corpuscular Hemoglobin 30.1 pg (26-34); Mean Corpuscular Volume 89.6 fl (80-100); Platelet Count Result 158 k/mm3 (150-375); Red Blood Count 3.95 M/mm3 (4.2-5.4); Red Cell Distribution Width 13.6 % (11.5-14.5); White Blood Count 9.3 K/mm3 (4.5-10.0)
[2021-01-05 02:32] LABS: Alanine Aminotransferase 11 U/L (4-35); Albumin Level 3.1 g/dL (3.5-5.1); Alkaline Phosphatase 98 U/L (38-126); Anion Gap 4 mmol/L (8-16); Aspartate Amino Transferase 19 U/L (14-36); Bilirubin,Total 0.8 mg/dL (0.2-1.3); Blood Urea Nitrogen 8 mg/dL (7-17); Calcium 9.2 mg/dL (8.4-10.2); Carbon Dioxide 24 mmol/L (22-30); Chloride 105 mmol/L (98-107); Estimated Glomerular Filt Rate > 60; Glucose 74 mg/dL (65-105); Potassium 3.6 mmol/L (3.4-5.0); Sodium 133 mmol/L (137-145)
[2021-01-05] MEDS: LABETALOL HCL 100 MG TABLET 200 MG PO ×3 (06:28→22:29)
--- NOTE | 2021-01-05 08:00 | PC.NURSE ---
Dr. Hector notified regarding elevated blood pressure at 0614, patient reporting that she takes her labetalol q8h, previous RN updating schedule change, and repeat blood pressure at 0729. Orders received for change in lab draw times. Dr. Hector to bedside to assess patient and discuss POC with patient.
--- NOTE | 2021-01-05 08:12 | PM.OBPNVD ---
OB - PN: Subj Subjective Date/time seen: 01/05/21 08:12 patient denies headache, blurry vision, epigastric pain. She denies any swelling. She denies any chest pain shortness of breath. She denies any nausea, vomiting, fever, chills. She reports good movement. She denies any contractions, loss of fluid, vaginal bleeding. OB - PN: Obj Data Labs CBC & Chem 7: 01/05/21 02:02 01/05/21 02:02 Labs: Laboratory Results - last 24 hr 01/04/21 01/04/21 01/04/21 14:00 14:00 14:00 WBC 9.9 RBC 4.39 Hgb 13.2 Hct 39.6 MCV 90.2 MCH 30.1 MCHC 33.3 RDW 13.6 Plt Count 174 MPV 11.1 H Immature Gran % (Auto) 1.0 H Neut % (Auto) 77.0 H Lymph % (Auto) 16.1 L [place] % (Auto) 5.3 Eos % (Auto) 0.5 Baso % (Auto) 0.1 L Lymph # (Auto) 1.60 [place] # (Auto) 0.5 Eos # (Auto) 0.1 Baso # (Auto) 0.0 Abs Immat Gran (auto) 0.10 H Absolute Neuts (auto) 7.6 H Absolute Nucleated RBC 0.0 Nucleated RBC % 0.0 Sodium 135 L Potassium 4.3 Chloride 105 Carbon Dioxide 23 Anion Gap 7 L BUN 6 L Creatinine 0.40 L Estim Creat Clear Calc Not Reportable Estimated GFR > 60 Glucose 67 Uric Acid 2.6 Calcium 9.3 Total Bilirubin 0.9 AST 20 ALT 12 Alkaline Phosphatase 115 Total Protein 7.0 Albumin 3.6 Urine Color Urine Appearance Urine pH Ur Specific [place] Urine Protein Urine Glucose (UA) Urine Ketones Ur Blood (Man) Urine Nitrate Urine Bilirubin Urine Urobilinogen Ur Leukocyte Esterase Urine RBC Urine WBC Ur Squamous Epith Cells Ur Transition Epith Cell Urine Bacteria Hyaline Casts Urine Mucus U Random Total Protein 262 Urine Creatinine 58.1 Protein/Creat Ratio 2 4.51 H 01/04/21 01/05/21 01/05/21 14:00 02:02 02:02 WBC 9.3 RBC 3.95 L Hgb 11.9 L Hct 35.4 L MCV 89.6 MCH 30.1 MCHC 33.6 RDW 13.6 Plt Count 158 MPV 11.0 H Immature Gran % (Auto) Neut % (Auto) Lymph % (Auto) [place] % (Auto) Eos % (Auto) Baso % (Auto) Lymph # (Auto) [place] # (Auto) Eos # (Auto) Baso # (Auto) Abs Immat Gran (auto) Absolute Neuts (auto) Absolute Nucleated RBC Nucleated RBC % Sodium 133 L Potassium 3.6 Chloride 105 Carbon Dioxide 24 Anion Gap 4 L BUN 8 Creatinine 0.40 L Estim Creat Clear Calc Not Reportable Estimated GFR > 60 Glucose 74 Uric Acid 3.0 Calcium 9.2 Total Bilirubin 0.8 AST 19 ALT 11 Alkaline Phosphatase 98 Total Protein 6.0 L Albumin 3.1 L Urine Color Yellow Urine Appearance Cloudy H Urine pH 6.0 Ur Specific [place] 1.013 Urine Protein 3+ H Urine Glucose (UA) Negative Urine Ketones Negative Ur Blood (Man) Negative Urine Nitrate Negative Urine Bilirubin Negative Urine Urobilinogen Negative Ur Leukocyte Esterase 3+ H Urine RBC 11-20 H Urine WBC 16-20 H Ur Squamous Epith Cells Many H Ur Transition Epith Cell Rare Urine Bacteria Trace Hyaline Casts 1-2 Urine Mucus Few H U Random Total Protein Urine Creatinine Protein/Creat Ratio 2 OB - PN A/P Assessment and Plan (1) Preeclampsia: Code(s): O14.90 - Unspecified pre-eclampsia, unspecified trimester Status: Acute Assessment and Plan: This patient is a 35-year-old 4 para 1 at 32 weeks 1 day with preeclampsia. Her preeclampsia labs are normal, her blood pressures are reasonable with 200 mg of labetalol t.i.d.. She is reassuring status. We have agreed to observe her here [facility]. It was recommended that she be transferred to same areas until delivery at 34 weeks. Patient declined transfer. Time Spent With Patient Time: Total time spent is greater than 50% in coordination of care (as documented) at patient's floor/unit and/or coun
[2021-01-05 09:24] LABS: Mean Platelet Volume 10.9 fl (7.4-10.4); Platelet Count Result 165 k/mm3 (150-375)
[2021-01-05 09:37] LABS: Alanine Aminotransferase 13 U/L (4-35); Albumin Level 3.3 g/dL (3.5-5.1); Alkaline Phosphatase 107 U/L (38-126); Anion Gap 4 mmol/L (8-16); Aspartate Amino Transferase 20 U/L (14-36); Blood Urea Nitrogen 6 mg/dL (7-17); Calcium 8.7 mg/dL (8.4-10.2); Carbon Dioxide 25 mmol/L (22-30); Chloride 105 mmol/L (98-107); Estimated Glomerular Filt Rate > 60; Glucose 79 mg/dL (65-105); Potassium 3.9 mmol/L (3.4-5.0); Sodium 134 mmol/L (137-145); Uric Acid 3.1 mg/dL (2.5-7.5)
[2021-01-05 21:39] LABS: Mean Platelet Volume 10.4 fl (7.4-10.4); Platelet Count Result 177 k/mm3 (150-375)
[2021-01-05 21:51] LABS: Alanine Aminotransferase 14 U/L (4-35); Albumin Level 3.4 g/dL (3.5-5.1); Alkaline Phosphatase 106 U/L (38-126); Anion Gap 4 mmol/L (8-16); Aspartate Amino Transferase 20 U/L (14-36); Bilirubin,Total 0.8 mg/dL (0.2-1.3); Blood Urea Nitrogen 7 mg/dL (7-17); Calcium 9.6 mg/dL (8.4-10.2); Carbon Dioxide 26 mmol/L (22-30); Chloride 105 mmol/L (98-107); Estimated Glomerular Filt Rate > 60; Glucose 92 mg/dL (65-105); Potassium 3.6 mmol/L (3.4-5.0); Sodium 135 mmol/L (137-145); Uric Acid 2.9 mg/dL (2.5-7.5)
[2021-01-05] MEDS: ZOLPIDEM TARTRATE (*CRX) 5 MG TABLET PO (22:30)
[2021-01-06] VITALS (20 sets, daily range): BP systolic 114–157; BP diastolic 70–103; PULSE 74–101; TEMP 36.6; O2SAT 100
--- NOTE | 2021-01-06 06:00 | OBADM ---
This patient, Triny Finch, admitted to the OB room OB Post 116 for observation. Patient/family oriented to hospital policies and general routines including ID bracelet, bed and alarms, visiting hours, pain management, procedures, bathroom and other care routines, personal items, smoking policy, room service/diet, and visiting hours. Patient/Family are encouraged to report perceived risks to care and to ask questions if they do not understand what they are told or what they should do.
[2021-01-06] MEDS: LABETALOL HCL 100 MG TABLET 200 MG PO ×3 (06:30→22:42)
--- NOTE | 2021-01-06 07:49 | PM.OBPNVD ---
OB - PN: Subj Subjective Date/time seen: 01/06/21 07:49 Pt doing well, Bp increased at time of next dose of labetalol, no severe range pressures, denies headache, visual changes, swelling, epigastric pain. OB - PN: Obj Data Labs CBC & Chem 7: 01/05/21 21:33 01/05/21 21:33 Labs: Laboratory Results - last 24 hr 01/05/21 01/05/21 01/05/21 09:01 09:01 21:33 Plt Count 165 177 MPV 10.9 H 10.4 Sodium 134 L Potassium 3.9 Chloride 105 Carbon Dioxide 25 Anion Gap 4 L BUN 6 L Creatinine 0.40 L Estim Creat Clear Calc Not Reportable Estimated GFR > 60 Glucose 79 Uric Acid 3.1 Calcium 8.7 Total Bilirubin 1.0 AST 20 ALT 13 Alkaline Phosphatase 107 Total Protein 6.0 L Albumin 3.3 L 01/05/21 21:33 Plt Count MPV Sodium 135 L Potassium 3.6 Chloride 105 Carbon Dioxide 26 Anion Gap 4 L BUN 7 Creatinine 0.40 L Estim Creat Clear Calc Not Reportable Estimated GFR > 60 Glucose 92 Uric Acid 2.9 Calcium 9.6 Total Bilirubin 0.8 AST 20 ALT 14 Alkaline Phosphatase 106 Total Protein 7.0 Albumin 3.4 L OB - PN A/P Time Spent With Patient Time: Total time spent is greater than 50% in coordination of care (as documented) at patient's floor/unit and/or counseling patient: continue plan of care, reviewed with Dr. Hector, may draw labs Q24 hours, monitor bp and symptoms Review of Systems Review of Systems: All systems reviewed & are unremarkable except as noted in HPI and below Exam Const: General: cooperative Nutritional Appearance: average body habitus Limitations: no limitations Psych: Affect: normal affect Attitude: cooperative Thought process: Normal thought process present Thought content: Yes Normal thought content present Insight: Good insight present (Psych) Judgement: Good judgement present (Psych)
[2021-01-06 21:09] LABS: Mean Platelet Volume 11.1 fl (7.4-10.4); Platelet Count Result 172 k/mm3 (150-375)
[2021-01-06 21:24] LABS: Alanine Aminotransferase 13 U/L (4-35); Albumin Level 3.4 g/dL (3.5-5.1); Alkaline Phosphatase 104 U/L (38-126); Anion Gap 4 mmol/L (8-16); Aspartate Amino Transferase 19 U/L (14-36); Bilirubin,Total 0.9 mg/dL (0.2-1.3); Blood Urea Nitrogen 8 mg/dL (7-17); Calcium 9.3 mg/dL (8.4-10.2); Carbon Dioxide 26 mmol/L (22-30); Chloride 105 mmol/L (98-107); Estimated Glomerular Filt Rate > 60; Glucose 108 mg/dL (65-105); Potassium 3.8 mmol/L (3.4-5.0); Sodium 135 mmol/L (137-145); Uric Acid 2.8 mg/dL (2.5-7.5)
[2021-01-06] MEDS: ZOLPIDEM TARTRATE (*CRX) 5 MG TABLET PO (22:42)
[2021-01-07] VITALS (23 sets, daily range): BP systolic 122–152; BP diastolic 77–105; PULSE 83–98; RESP 16–18; TEMP 36.6–37.1; O2SAT 100
--- NOTE | 2021-01-07 03:36 | PC.NURSE ---
Pt has been sleeping quietly. Up to void. No complaints at this time.
[2021-01-07] MEDS: LABETALOL HCL 100 MG TABLET 200 MG PO ×3 (06:32→22:01)
--- NOTE | 2021-01-07 13:19 | PM.OBPNVD ---
OB - PN: Subj Subjective Date/time seen: 01/07/21 13:19 Patient denies any OBREGON/BV/EP. She denies and worsening edema. Good movement. OB - PN: Obj Data Labs CBC & Chem 7: 01/06/21 21:04 01/06/21 21:04 Labs: Laboratory Results - last 24 hr 01/06/21 01/06/21 21:04 21:04 Plt Count 172 MPV 11.1 H Sodium 135 L Potassium 3.8 Chloride 105 Carbon Dioxide 26 Anion Gap 4 L BUN 8 Creatinine 0.40 L Estim Creat Clear Calc Not Reportable Estimated GFR > 60 Glucose 108 H Uric Acid 2.8 Calcium 9.3 Total Bilirubin 0.9 AST 19 ALT 13 Alkaline Phosphatase 104 Total Protein 6.0 L Albumin 3.4 L OB - PN A/P Assessment and Plan (1) Preeclampsia: Code(s): O14.90 - Unspecified pre-eclampsia, unspecified trimester Status: Acute (2) Proteinuria affecting : Qualifiers: Trimester: third trimester Qualified Code(s): O12.13 - Gestational proteinuria, third trimester Code(s): O12.10 - Gestational proteinuria, unspecified trimester Status: Acute Assessment and Plan: to continue monitoring, considering second round of steroids before delivery and version Time Spent With Patient Time: Total time spent is greater than 50% in coordination of care (as documented) at patient's floor/unit and/or counseling patient: Exam Const: General: comfortable, no acute distress and alert Resp: Effort & Inspection: normal respiratory effort Auscultation: no crackles, no rales and no rhonchi Cardio: Rate: regular rate Heart sounds: no click, no murmurs and no rubs GI: Inspection: non-distended GI Palp: No Tenderness to palpation present (GI) Auscultation: normal bowel sounds Other: Incision - CDI Extrem: General: normal to inspection, no pedal edema and no calf tenderness
[2021-01-07 20:49] LABS: Mean Platelet Volume 10.7 fl (7.4-10.4); Platelet Count Result 180 k/mm3 (150-375)
[2021-01-07 21:02] LABS: Alanine Aminotransferase 13 U/L (4-35); Albumin Level 3.3 g/dL (3.5-5.1); Alkaline Phosphatase 103 U/L (38-126); Anion Gap 3 mmol/L (8-16); Aspartate Amino Transferase 17 U/L (14-36); Bilirubin,Total 0.9 mg/dL (0.2-1.3); Blood Urea Nitrogen 9 mg/dL (7-17); Carbon Dioxide 25 mmol/L (22-30); Chloride 106 mmol/L (98-107); Estimated Glomerular Filt Rate > 60; Glucose 103 mg/dL (65-105); Potassium 3.5 mmol/L (3.4-5.0); Sodium 134 mmol/L (137-145)
[2021-01-07] MEDS: ZOLPIDEM TARTRATE (*CRX) 5 MG TABLET PO (22:01)
[2021-01-08] VITALS (19 sets, daily range): BP systolic 114–158; BP diastolic 70–97; PULSE 76–94; RESP 16–18; TEMP 36.9–37.1; O2SAT 93–100
[2021-01-08] MEDS: LABETALOL HCL 100 MG TABLET 200 MG PO ×3 (06:22→21:43)
--- NOTE | 2021-01-08 12:01 | PM.OBPNVD ---
OB - PN: Subj Subjective Date/time seen: 01/08/21 12:01 Patient denies any OBREGON/BV/EP. She denies and worsening edema. Good movement OB - PN: Obj Data Labs CBC & Chem 7: 01/07/21 20:39 01/07/21 20:39 Labs: Laboratory Results - last 24 hr 01/07/21 01/07/21 20:39 20:39 Plt Count 180 MPV 10.7 H Sodium 134 L Potassium 3.5 Chloride 106 Carbon Dioxide 25 Anion Gap 3 L BUN 9 Creatinine 0.40 L Estim Creat Clear Calc Not Reportable Estimated GFR > 60 Glucose 103 Uric Acid 3.0 Calcium 9.0 Total Bilirubin 0.9 AST 17 ALT 13 Alkaline Phosphatase 103 Total Protein 6.0 L Albumin 3.3 L OB - PN A/P Assessment and Plan (1) Preeclampsia: Code(s): O14.90 - Unspecified pre-eclampsia, unspecified trimester Status: Acute (2) Third trimester : Code(s): Z34.93 - Encounter for supervision of normal , unspecified, third trimester Status: Acute Assessment and Plan: Stable severe preeclampsia, breech, 32 and 5/7 weeks, to deliver at 34 weeks, normal labs Time Spent With Patient Time: Total time spent is greater than 50% in coordination of care (as documented) at patient's floor/unit and/or counseling patient: Exam Const: General: comfortable, no acute distress and alert Resp: Effort & Inspection: normal respiratory effort Auscultation: no crackles, no rales and no rhonchi Cardio: Rate: regular rate Heart sounds: no click, no murmurs and no rubs GI: Inspection: non-distended GI Palp: No Tenderness to palpation present (GI) Auscultation: normal bowel sounds Other: Incision - CDI Extrem: General: normal to inspection, no pedal edema and no calf tenderness
[2021-01-08 21:32] LABS: Immature Platelet Fraction Pct 6.2 % (0.9-11.2); Platelet Count Result 178 k/mm3 (150-375)
[2021-01-08 21:39] LABS: Alanine Aminotransferase 12 U/L (4-35); Albumin Level 3.2 g/dL (3.5-5.1); Alkaline Phosphatase 103 U/L (38-126); Anion Gap 4 mmol/L (8-16); Aspartate Amino Transferase 17 U/L (14-36); Bilirubin,Total 0.8 mg/dL (0.2-1.3); Blood Urea Nitrogen 10 mg/dL (7-17); Calcium 9.4 mg/dL (8.4-10.2); Carbon Dioxide 23 mmol/L (22-30); Chloride 106 mmol/L (98-107); Estimated Glomerular Filt Rate > 60; Glucose 87 mg/dL (65-105); Potassium 3.7 mmol/L (3.4-5.0); Sodium 133 mmol/L (137-145); Uric Acid 3.4 mg/dL (2.5-7.5)
[2021-01-08] MEDS: ZOLPIDEM TARTRATE (*CRX) 5 MG TABLET PO (21:43)
[2021-01-09] VITALS (18 sets, daily range): BP systolic 116–156; BP diastolic 71–98; PULSE 81–91; RESP 18; TEMP 36.9–37.3; O2SAT 99
[2021-01-09] MEDS: LABETALOL HCL 100 MG TABLET 200 MG PO ×3 (06:13→21:45)
--- NOTE | 2021-01-09 08:24 | PM.OBPNVD ---
OB - PN: Subj Subjective Date/time seen: 01/09/21 08:24 No OBREGON/BV/EP , no edema, no sob or cp OB - PN: Obj Data Labs CBC & Chem 7: 01/08/21 21:19 01/08/21 21:19 Labs: Laboratory Results - last 24 hr 01/08/21 01/08/21 21:19 21:19 Plt Count 178 MPV 11.0 H % Immature Plt Fraction 6.2 Sodium 133 L Potassium 3.7 Chloride 106 Carbon Dioxide 23 Anion Gap 4 L BUN 10 Creatinine 0.50 L Estim Creat Clear Calc Not Reportable Estimated GFR > 60 Glucose 87 Uric Acid 3.4 Calcium 9.4 Total Bilirubin 0.8 AST 17 ALT 12 Alkaline Phosphatase 103 Total Protein 6.0 L Albumin 3.2 L OB - PN A/P Assessment and Plan (1) Third trimester : Code(s): Z34.93 - Encounter for supervision of normal , unspecified, third trimester Status: Acute (2) Preeclampsia: Code(s): O14.90 - Unspecified pre-eclampsia, unspecified trimester Status: Acute Assessment and Plan: stable, cont. obs., considering version and 2nd round of steroids Time Spent With Patient Time: Total time spent is greater than 50% in coordination of care (as documented) at patient's floor/unit and/or counseling patient: Exam Const: General: comfortable, no acute distress and alert Resp: Effort & Inspection: normal respiratory effort Auscultation: no crackles, no rales and no rhonchi Cardio: Rate: regular rate Heart sounds: no click, no murmurs and no rubs GI: Inspection: non-distended GI Palp: No Tenderness to palpation present (GI) Auscultation: normal bowel sounds Other: Incision - CDI Extrem: General: normal to inspection, no pedal edema and no calf tenderness
[2021-01-09] MEDS: ZOLPIDEM TARTRATE (*CRX) 5 MG TABLET PO (21:46)
[2021-01-09 22:01] LABS: Mean Platelet Volume 11.1 fl (7.4-10.4); Platelet Count Result 182 k/mm3 (150-375)
[2021-01-09 22:17] LABS: Alanine Aminotransferase 13 U/L (4-35); Albumin Level 3.4 g/dL (3.5-5.1); Alkaline Phosphatase 112 U/L (38-126); Anion Gap 9 mmol/L (8-16); Aspartate Amino Transferase 18 U/L (14-36); Bilirubin,Total 0.7 mg/dL (0.2-1.3); Blood Urea Nitrogen 8 mg/dL (7-17); Carbon Dioxide 22 mmol/L (22-30); Chloride 105 mmol/L (98-107); Estimated Glomerular Filt Rate > 60; Glucose 102 mg/dL (65-105); Potassium 3.5 mmol/L (3.4-5.0); Sodium 136 mmol/L (137-145); Uric Acid 3.5 mg/dL (2.5-7.5)
[2021-01-10] VITALS (15 sets, daily range): BP systolic 122–160; BP diastolic 72–105; PULSE 73–103; RESP 15–16; TEMP 36.7–37.5
[2021-01-10] MEDS: LABETALOL HCL 100 MG TABLET 200 MG PO ×3 (06:07→22:07)
--- NOTE | 2021-01-10 08:34 | P.PNOB_ITS ---
OB - PN: Subj Subjective Date/time seen: 01/10/21 08:34 patient denies headache, blurry vision, epigastric pain. She denies worsening of her swelling. She denies any nausea, vomiting, fever, chills. Denies any chest pain or shortness of breath. OB - PN: Obj Data Labs CBC & Chem 7: 01/09/21 21:56 03 21:56 Labs: Laboratory Results - last 24 hr 01/09/21 03 21:56 21:56 Plt Count 182 MPV 11.1 H Sodium 136 L Potassium 3.5 Chloride 105 Carbon Dioxide 22 Anion Gap 9 BUN 8 Creatinine 0.50 L Estim Creat Clear Calc Not Reportable Estimated GFR > 60 Glucose 102 Uric Acid 3.5 Calcium 9.0 Total Bilirubin 0.7 AST 18 ALT 13 Alkaline Phosphatase 112 Total Protein 7.0 Albumin 3.4 L OB - PN A/P Assessment and Plan (1) Third trimester : Code(s): Z34.93 - Encounter for supervision of normal , unspecified, third trimester Status: Acute (2) Preeclampsia: Code(s): O14.90 - Unspecified pre-eclampsia, unspecified trimester Status: Acute Assessment and Plan: This patient is a 35-year-old multiparous female at 32 and 6 7th weeks, with history of preeclampsia, now diagnosed with severe preeclampsia. Discussed with the patient delivery and 8 days. She has an anterior placenta and external cephalic version will not be possible. I discussed a rescue dose of steroids with Dr. Capellan. He does not believe 2nd dose or round of steroids would be appropriate. There is reassuring status. She is having NSTs multiple jil es a day. Labs are stable. To perform Doppler flow studies of umbilical artery tomorrow. Time Spent With Patient Time: Total time spent is greater than 50% in coordination of care (as documented) at patient's floor/unit and/or counseling patient: Exam Const: General: comfortable, no acute distress and alert Resp: Effort & Inspection: normal respiratory effort Auscultation: no crackles, no rales and no rhonchi Cardio: Rate: regular rate Heart sounds: no click, no murmurs and no rubs GI: Inspection: non-distended GI Palp: No Tenderness to palpation present (GI) Auscultation: normal bowel sounds Other: Incision - CDI Extrem: General: normal to inspection, no pedal edema and no calf tenderness
[2021-01-10] MEDS: MULTIVIT/MIN/PREN/FOL AC/IRON TABLET 1 TAB PO (08:50)
[2021-01-10 09:02] LABS: Mean Platelet Volume 10.9 fl (7.4-10.4); Platelet Count Result 164 k/mm3 (150-375)
[2021-01-10 09:15] LABS: Alanine Aminotransferase 11 U/L (4-35); Albumin Level 3.2 g/dL (3.5-5.1); Alkaline Phosphatase 111 U/L (38-126); Anion Gap 4 mmol/L (8-16); Aspartate Amino Transferase 17 U/L (14-36); Bilirubin,Total 0.8 mg/dL (0.2-1.3); Blood Urea Nitrogen 7 mg/dL (7-17); Calcium 8.6 mg/dL (8.4-10.2); Carbon Dioxide 23 mmol/L (22-30); Chloride 107 mmol/L (98-107); Estimated Glomerular Filt Rate > 60; Glucose 77 mg/dL (65-105); Potassium 4.3 mmol/L (3.4-5.0); Sodium 134 mmol/L (137-145); Uric Acid 3.4 mg/dL (2.5-7.5)
[2021-01-10] MEDS: ZOLPIDEM TARTRATE (*CRX) 5 MG TABLET PO (22:08)
[2021-01-11] VITALS (21 sets, daily range): BP systolic 125–173; BP diastolic 72–104; PULSE 75–100; RESP 16; TEMP 36.8–37.3
[2021-01-11] MEDS: LABETALOL HCL 100 MG TABLET 200 MG PO ×3 (06:15→21:59)
--- NOTE | 2021-01-11 07:40 | PM.OBPNVD ---
OB - PN: Subj Subjective Date/time seen: 01/11/21 07:40 pt denies, headache, visual changes, epigastric pain, swelling, bp stable, labs stable OB - PN: Obj Data Labs CBC & Chem 7: 01/10/21 08:51 01/10/21 08:51 Labs: Laboratory Results - last 24 hr 01/10/21 01/10/21 08:51 08:51 Plt Count 164 MPV 10.9 H Sodium 134 L Potassium 4.3 Chloride 107 Carbon Dioxide 23 Anion Gap 4 L BUN 7 Creatinine 0.40 L Estim Creat Clear Calc Not Reportable Estimated GFR > 60 Glucose 77 Uric Acid 3.4 Calcium 8.6 Total Bilirubin 0.8 AST 17 ALT 11 Alkaline Phosphatase 111 Total Protein 6.0 L Albumin 3.2 L OB - PN A/P Time Spent With Patient Time: Total time spent is greater than 50% in coordination of care (as documented) at patient's floor/unit and/or counseling patient:
--- NOTE | 2021-01-11 07:42 | PM.OBPNVD ---
OB - PN: Subj Subjective Date/time seen: 01/11/21 07:42 pt denies headache, visual changes, epigastric pain, bp stable, labs stable OB - PN: Obj Data Labs CBC & Chem 7: 01/10/21 08:51 01/10/21 08:51 Labs: Laboratory Results - last 24 hr 01/10/21 01/10/21 08:51 08:51 Plt Count 164 MPV 10.9 H Sodium 134 L Potassium 4.3 Chloride 107 Carbon Dioxide 23 Anion Gap 4 L BUN 7 Creatinine 0.40 L Estim Creat Clear Calc Not Reportable Estimated GFR > 60 Glucose 77 Uric Acid 3.4 Calcium 8.6 Total Bilirubin 0.8 AST 17 ALT 11 Alkaline Phosphatase 111 Total Protein 6.0 L Albumin 3.2 L OB - PN A/P Plan Comments: plan: 1. severe preeclampsia continue to monitor bp and symptoms plan us today spoke with Dr. max Time Spent With Patient Time: Total time spent is greater than 50% in coordination of care (as documented) at patient's floor/unit and/or counseling patient: Review of Systems Review of Systems: All systems reviewed & are unremarkable except as noted in HPI and below Exam Const: General: cooperative Orientation/consciousness: patient oriented x3 Resp: Effort & Inspection: normal respiratory effort GI: Inspection: normal to inspection Skin: General skin exam: normal color Neuro: General: patient oriented x3 Extrem: General: normal to inspection Psych: Appearance: grossly normal Affect: normal affect Attitude: cooperative Thought process: Normal thought process present Insight: Good insight present (Psych)
[2021-01-11] MEDS: MULTIVIT/MIN/PREN/FOL AC/IRON TABLET 1 TAB PO (09:45)
[2021-01-11 09:59] LABS: Platelet Count Result 172 k/mm3 (150-375)
[2021-01-11 10:11] LABS: Alanine Aminotransferase 13 U/L (4-35); Albumin Level 3.3 g/dL (3.5-5.1); Alkaline Phosphatase 114 U/L (38-126); Anion Gap 4 mmol/L (8-16); Aspartate Amino Transferase 18 U/L (14-36); Bilirubin,Total 0.9 mg/dL (0.2-1.3); Blood Urea Nitrogen 7 mg/dL (7-17); Calcium 8.7 mg/dL (8.4-10.2); Carbon Dioxide 21 mmol/L (22-30); Chloride 108 mmol/L (98-107); Estimated Glomerular Filt Rate > 60; Glucose 111 mg/dL (65-105); Potassium 3.8 mmol/L (3.4-5.0); Sodium 133 mmol/L (137-145); Uric Acid 3.5 mg/dL (2.5-7.5)
--- NOTE | 2021-01-11 18:45 | PC.NURSE ---
Pt eating dinner with . Denies any headache, blurred vision, epigastric pain or any other problems. Pt was transferred to new room today. Pt states she enjoyed the view with location of past room. Due to length of stay will move to room near previous.
[2021-01-11] MEDS: ZOLPIDEM TARTRATE (*CRX) 5 MG TABLET PO (21:59)
[2021-01-12] VITALS (28 sets, daily range): BP systolic 120–169; BP diastolic 72–105; PULSE 76–93; TEMP 36.5–37.3
[2021-01-12] MEDS: LABETALOL HCL 100 MG TABLET 200 MG PO (06:16)
--- NOTE | 2021-01-12 08:30 | PM.OBPNVD ---
OB - PN: Subj Subjective Date/time seen: 01/12/21 08:30 patient denies any increased swelling, blurry vision, epigastric pain. She denies any chest pain shortness of breath. She denies any nausea, vomiting, fever, chills. OB - PN: Obj Data Labs CBC & Chem 7: 01/11/21 09:47 01/11/21 09:47 Labs: Laboratory Results - last 24 hr 01/11/21 01/11/21 09:47 09:47 Plt Count 172 MPV 11.0 H Sodium 133 L Potassium 3.8 Chloride 108 H Carbon Dioxide 21 L Anion Gap 4 L BUN 7 Creatinine 0.50 L Estim Creat Clear Calc Not Reportable Estimated GFR > 60 Glucose 111 H Uric Acid 3.5 Calcium 8.7 Total Bilirubin 0.9 AST 18 ALT 13 Alkaline Phosphatase 114 Total Protein 6.0 L Albumin 3.3 L OB - PN A/P Assessment and Plan (1) Third trimester : Code(s): Z34.93 - Encounter for supervision of normal , unspecified, third trimester Status: Acute (2) Preeclampsia: Code(s): O14.90 - Unspecified pre-eclampsia, unspecified trimester Status: Acute Assessment and Plan: This patient is the 35-year-old female, multiparous, with severe preeclampsia at 33 and 1/7th week. She continued to be stable. Her labs were stable, her blood pressures are stable but are slightly labile prior to her next dose of labetalol. Regarding increase labetalol to 300 mg t.i.d.. To deliver and 6 days. Reassuring status. Normal Dopplers yesterday. (3) affected by growth restriction: Code(s): O36.5990 - Maternal care for other known or suspected poor growth, unspecified trimester, not applicable or unspecified Status: Acute Time Spent With Patient Time: Total time spent is greater than 50% in coordination of care (as documented) at patient's floor/unit and/or counseling patient: Exam Const: General: comfortable, no acute distress and alert Resp: Effort & Inspection: normal respiratory effort Auscultation: no crackles, no rales and no rhonchi Cardio: Rate: regular rate Heart sounds: no click, no murmurs and no rubs GI: Inspection: non-distended GI Palp: No Tenderness to palpation present (GI) Auscultation: normal bowel sounds Other: Incision - CDI Extrem: General: normal to inspection, no pedal edema and no calf tenderness
[2021-01-12] MEDS: LABETALOL HCL 100 MG TABLET PO (08:34)
[2021-01-12 09:15] LABS: Mean Platelet Volume 11.1 fl (7.4-10.4); Platelet Count Result 174 k/mm3 (150-375)
[2021-01-12 09:28] LABS: Alanine Aminotransferase 12 U/L (4-35); Albumin Level 3.4 g/dL (3.5-5.1); Alkaline Phosphatase 117 U/L (38-126); Anion Gap 5 mmol/L (8-16); Aspartate Amino Transferase 19 U/L (14-36); Bilirubin,Total 0.8 mg/dL (0.2-1.3); Blood Urea Nitrogen 9 mg/dL (7-17); Calcium 8.8 mg/dL (8.4-10.2); Carbon Dioxide 21 mmol/L (22-30); Chloride 108 mmol/L (98-107); Estimated Glomerular Filt Rate > 60; Glucose 79 mg/dL (65-105); Potassium 4.1 mmol/L (3.4-5.0); Sodium 134 mmol/L (137-145); Uric Acid 3.1 mg/dL (2.5-7.5)
[2021-01-12] MEDS: MULTIVIT/MIN/PREN/FOL AC/IRON TABLET 1 TAB PO (11:03)
[2021-01-12] MEDS: LABETALOL HCL 100 MG TABLET 300 MG PO ×2 (13:59→21:55)
--- NOTE | 2021-01-12 18:30 | PC.NURSE ---
Pt resting quietly and visiting with . Vital signs as noted. No complaints at this time.
[2021-01-12] MEDS: ZOLPIDEM TARTRATE (*CRX) 5 MG TABLET PO (21:58)
--- NOTE | 2021-01-12 22:00 | PC.NURSE ---
Pt states she feels like increase in swelling of lower extremities. Slight increase in edema of feet as compared to last night of caring for pt.1+ edema noted.Pt does not have headache, blurred vision or abdominal pain.
[2021-01-13] VITALS (23 sets, daily range): BP systolic 119–189; BP diastolic 74–102; PULSE 74–90; RESP 18–20; TEMP 36.6–37.7; O2SAT 98–99
[2021-01-13] MEDS: LABETALOL HCL 100 MG TABLET 300 MG PO ×3 (06:28→21:58)
--- NOTE | 2021-01-13 07:58 | PM.OBPNVD ---
OB - PN: Subj Subjective Date/time seen: 01/13/21 07:58 denies mariano, visual changes, epigastric pain, does complain of increased swelling in her ankles and face. labs rpt at 0900. no severe range bp's prior to labetalol 150's/90's. OB - PN: Obj Data Labs CBC & Chem 7: 01/12/21 09:09 01/12/21 09:09 Labs: Laboratory Results - last 24 hr 01/12/21 01/12/21 09:09 09:09 Plt Count 174 MPV 11.1 H Sodium 134 L Potassium 4.1 Chloride 108 H Carbon Dioxide 21 L Anion Gap 5 L BUN 9 Creatinine 0.40 L Estim Creat Clear Calc Not Reportable Estimated GFR > 60 Glucose 79 Uric Acid 3.1 Calcium 8.8 Total Bilirubin 0.8 AST 19 ALT 12 Alkaline Phosphatase 117 Total Protein 7.0 Albumin 3.4 L OB - PN A/P Time Spent With Patient Time: Total time spent is greater than 50% in coordination of care (as documented) at patient's floor/unit and/or counseling patient: severe preeclampsia continue to monitor bp's and sxs labs daily dr. max aware Review of Systems Review of Systems: All systems reviewed & are unremarkable except as noted in HPI and below Exam Const: General: cooperative Resp: Effort & Inspection: normal respiratory effort and able to speak in complete sentences GI: Inspection: normal to inspection : OB/external & speculum: Deferred OB/external & speculum exam Skin: General skin exam: normal color Neuro: General: patient oriented x3 Extrem: Right lower extremity: edema Details: non-pitting and 1+ Left lower extremity: ankle Psych: Appearance: grossly normal Speech and movement: Normal speech and movement present Affect: normal affect Thought process: Normal thought process present Thought content: Yes Normal thought content present
[2021-01-13] MEDS: MULTIVIT/MIN/PREN/FOL AC/IRON TABLET 1 TAB PO (09:10)
[2021-01-13 10:50] LABS: Mean Platelet Volume 10.6 fl (7.4-10.4); Platelet Count Result 152 k/mm3 (150-375)
[2021-01-13 11:04] LABS: Alanine Aminotransferase 11 U/L (4-35); Albumin Level 3.2 g/dL (3.5-5.1); Alkaline Phosphatase 106 U/L (38-126); Anion Gap 4 mmol/L (8-16); Aspartate Amino Transferase 18 U/L (14-36); Bilirubin,Total 0.6 mg/dL (0.2-1.3); Blood Urea Nitrogen 7 mg/dL (7-17); Calcium 8.8 mg/dL (8.4-10.2); Carbon Dioxide 23 mmol/L (22-30); Chloride 108 mmol/L (98-107); Estimated Glomerular Filt Rate > 60; Glucose 83 mg/dL (65-105); Potassium 3.8 mmol/L (3.4-5.0); Sodium 135 mmol/L (137-145); Uric Acid 3.2 mg/dL (2.5-7.5)
--- NOTE | 2021-01-13 18:10 | PC.NURSE ---
Pt sitting up eating pizza for supper with her .
[2021-01-13] MEDS: ZOLPIDEM TARTRATE (*CRX) 5 MG TABLET PO (21:59)
[2021-01-14] VITALS (11 sets, daily range): BP systolic 109–158; BP diastolic 73–98; PULSE 75–89; RESP 16–18; TEMP 36.4–37.2
[2021-01-14] MEDS: LABETALOL HCL 100 MG TABLET 300 MG PO ×3 (05:56→21:55)
--- NOTE | 2021-01-14 08:53 | PC.NURSE ---
Jax Pineda CRNA at bedside discussing plan of care. No new orders received.
--- NOTE | 2021-01-14 09:03 | P.PNOB_ITS ---
OB - PN: Subj Subjective Date/time seen: 01/14/21 09:03 doing well, denies headache, visual changes, epigsatric pain. has mild ankle edema bilaterally. labs at 0900, bp no change OB - PN: Obj Data Labs CBC & Chem 7: 01/13/21 10:41 01/13/21 10:41 Labs: Laboratory Results - last 24 hr 01/13/21 01/13/21 10:41 10:41 Plt Count 152 MPV 10.6 H Sodium 135 L Potassium 3.8 Chloride 108 H Carbon Dioxide 23 Anion Gap 4 L BUN 7 Creatinine 0.50 L Estim Creat Clear Calc Not Reportable Estimated GFR > 60 Glucose 83 Uric Acid 3.2 Calcium 8.8 Total Bilirubin 0.6 AST 18 ALT 11 Alkaline Phosphatase 106 Total Protein 6.0 L Albumin 3.2 L OB - PN A/P Time Spent With Patient Time: Total time spent is greater than 50% in coordination of care (as docume nted) at patient's floor/unit and/or counseling patient: continue to monitor bp and for severe features, plan cesraean section at 34 weeks, dr max aware
[2021-01-14 09:24] LABS: Mean Platelet Volume 10.9 fl (7.4-10.4); Platelet Count Result 148 k/mm3 (150-375)
[2021-01-14 09:33] LABS: Alanine Aminotransferase 11 U/L (4-35); Albumin Level 3.1 g/dL (3.5-5.1); Alkaline Phosphatase 108 U/L (38-126); Anion Gap 4 mmol/L (8-16); Aspartate Amino Transferase 18 U/L (14-36); Bilirubin,Total 0.7 mg/dL (0.2-1.3); Blood Urea Nitrogen 6 mg/dL (7-17); Calcium 8.6 mg/dL (8.4-10.2); Carbon Dioxide 25 mmol/L (22-30); Chloride 106 mmol/L (98-107); Estimated Glomerular Filt Rate > 60; Glucose 72 mg/dL (65-105); Potassium 4.2 mmol/L (3.4-5.0); Sodium 135 mmol/L (137-145); Uric Acid 3.4 mg/dL (2.5-7.5)
[2021-01-14] MEDS: MULTIVIT/MIN/PREN/FOL AC/IRON TABLET 1 TAB PO (21:55)
[2021-01-14] MEDS: ZOLPIDEM TARTRATE (*CRX) 5 MG TABLET PO (21:55)
[2021-01-15] VITALS (15 sets, daily range): BP systolic 134–163; BP diastolic 74–107; PULSE 75–90; RESP 16–18; TEMP 36.4–36.9
[2021-01-15] MEDS: LABETALOL HCL 100 MG TABLET 300 MG PO ×3 (05:58→22:02)
[2021-01-15] MEDS: MULTIVIT/MIN/PREN/FOL AC/IRON TABLET 1 TAB PO (09:10)
[2021-01-15 09:16] LABS: Mean Platelet Volume 10.6 fl (7.4-10.4); Platelet Count Result 148 k/mm3 (150-375)
[2021-01-15 09:28] LABS: Alanine Aminotransferase 11 U/L (4-35); Alkaline Phosphatase 102 U/L (38-126); Anion Gap 4 mmol/L (8-16); Aspartate Amino Transferase 17 U/L (14-36); Bilirubin,Total 0.7 mg/dL (0.2-1.3); Blood Urea Nitrogen 5 mg/dL (7-17); Calcium 8.7 mg/dL (8.4-10.2); Carbon Dioxide 24 mmol/L (22-30); Chloride 106 mmol/L (98-107); Estimated Glomerular Filt Rate > 60; Glucose 73 mg/dL (65-105); Potassium 4.1 mmol/L (3.4-5.0); Sodium 134 mmol/L (137-145); Uric Acid 3.1 mg/dL (2.5-7.5)
--- NOTE | 2021-01-15 12:09 | PM.OBPNVD ---
OB - PN: Subj Subjective Date/time seen: 01/15/21 12:09 denies headache, visual changes, epigastric pain, vs and labs no change OB - PN: Obj Data Labs CBC & Chem 7: 01/15/21 09:08 01/15/21 09:08 Labs: Laboratory Results - last 24 hr 01/15/21 01/15/21 09:08 09:08 Plt Count 148 L MPV 10.6 H Sodium 134 L Potassium 4.1 Chloride 106 Carbon Dioxide 24 Anion Gap 4 L BUN 5 L Creatinine 0.50 L Estim Creat Clear Calc Not Reportable Estimated GFR > 60 Glucose 73 Uric Acid 3.1 Calcium 8.7 Total Bilirubin 0.7 AST 17 ALT 11 Alkaline Phosphatase 102 Total Protein 6.0 L Albumin 3.0 L OB - PN A/P Time Spent With Patient Time: Total time spent is greater than 50% in coordination of care (as documented) at patient's floor/unit and/or counseling patient: preeclampsia w/o severe features plan section wed today fetus transverse by US Review of Systems Review of Systems: All systems reviewed & are unremarkable except as noted in HPI and below Exam Const: General: cooperative Extrem: Right lower extremity: edema Details: non-pitting and 1+ Left lower extremity: edema Details: non-pitting and 1+ Psych: Affect: normal affect Attitude: cooperative Thought process: Normal thought process present Thought content: Yes Normal thought content present Insight: Good insight present (Psych)
[2021-01-15] MEDS: ZOLPIDEM TARTRATE (*CRX) 5 MG TABLET PO (22:05)
[2021-01-16] VITALS (17 sets, daily range): BP systolic 124–168; BP diastolic 77–105; PULSE 75–98; RESP 15–18; TEMP 36.6–37.3
[2021-01-16] MEDS: LABETALOL HCL 100 MG TABLET 300 MG PO ×3 (06:08→22:28)
--- NOTE | 2021-01-16 08:14 | P.PNOB_ITS ---
OB - PN: Subj Subjective Date/time seen: 01/16/21 08:14 patient denies any headaches, blurry vision, epigastric pain. She reports good movement. She denies any loss of fluid, contractions, vaginal bleeding. She denies any chest pain shortness of breath. She denies any nausea, vomiting, fever, chills. OB - PN: Obj Data Labs CBC & Chem 7: 01/15/21 09:08 01/15/21 09:08 Labs: Laboratory Results - last 24 hr 01/15/21 01/15/21 09:08 09:08 Plt Count 148 L MPV 10.6 H Sodium 134 L Potassium 4.1 Chloride 106 Carbon Dioxide 24 Anion Gap 4 L BUN 5 L Creatinine 0.50 L Estim Creat Clear Calc Not Reportable Estimated GFR > 60 Glucose 73 Uric Acid 3.1 Calcium 8.7 Total Bilirubin 0.7 AST 17 ALT 11 Alkaline Phosphatase 102 Total Protein 6.0 L Albumin 3.0 L OB - PN A/P Assessment and Plan (1) Preeclampsia: Code(s): O14.90 - Unspecified pre-eclampsia, unspecified trimester Status: Acute (2) Third trimester : Code(s): Z34.93 - Encounter for supervision of normal , unspecified, third trimester Status: Acute (3) affected by growth restriction: Code(s): O36.5990 - Maternal care for other known or suspected poor growth, unspecified trimester, not applicable or unspecified Status: Acute Assessment and Plan: Severe preeclampsia, stable, to deliver 34 weeks/2 days, to recheck well- being today. Time Spent With Patient Time: Total time spent is greater than 50% in coordination of care (as documented) at patient's floor/unit and/or counseling patient: Exam Const: General: comfortable, no acute distress and alert Resp: Effort & Inspection: normal respiratory effort Auscultation: no crackles, no rales and no rhonchi Cardio: Rate: regular rate Heart sounds: no click, no murmurs and no rubs GI: Inspection: non-distended GI Palp: No Tenderness to palpation present (GI) Auscultation: normal bowel sounds Other: Incision - CDI Extrem: General: normal to inspection, no pedal edema and no calf tenderness
[2021-01-16 09:15] LABS: Mean Platelet Volume 10.7 fl (7.4-10.4); Platelet Count Result 155 k/mm3 (150-375)
[2021-01-16 09:27] LABS: Alanine Aminotransferase 11 U/L (4-35); Albumin Level 3.1 g/dL (3.5-5.1); Alkaline Phosphatase 111 U/L (38-126); Anion Gap 3 mmol/L (8-16); Aspartate Amino Transferase 18 U/L (14-36); Bilirubin,Total 0.8 mg/dL (0.2-1.3); Blood Urea Nitrogen 5 mg/dL (7-17); Calcium 8.8 mg/dL (8.4-10.2); Carbon Dioxide 23 mmol/L (22-30); Chloride 107 mmol/L (98-107); Estimated Glomerular Filt Rate > 60; Glucose 74 mg/dL (65-105); Potassium 3.8 mmol/L (3.4-5.0); Sodium 133 mmol/L (137-145); Uric Acid 3.1 mg/dL (2.5-7.5)
[2021-01-16] MEDS: MULTIVIT/MIN/PREN/FOL AC/IRON TABLET 1 TAB PO (14:06)
[2021-01-16] MEDS: ZOLPIDEM TARTRATE (*CRX) 5 MG TABLET PO (22:29)
[2021-01-17] VITALS (28 sets, daily range): BP systolic 124–172; BP diastolic 65–104; PULSE 72–92; RESP 14–16; TEMP 36.6–36.9; O2SAT 99
[2021-01-17] MEDS: LABETALOL HCL 100 MG TABLET 300 MG PO ×3 (05:58→21:16)
[2021-01-17 09:03] LABS: Platelet Count Result 154 k/mm3 (150-375)
[2021-01-17 09:14] LABS: Alanine Aminotransferase 11 U/L (4-35); Albumin Level 3.1 g/dL (3.5-5.1); Alkaline Phosphatase 107 U/L (38-126); Anion Gap 3 mmol/L (8-16); Aspartate Amino Transferase 19 U/L (14-36); Bilirubin,Total 0.7 mg/dL (0.2-1.3); Blood Urea Nitrogen 7 mg/dL (7-17); Calcium 8.9 mg/dL (8.4-10.2); Carbon Dioxide 24 mmol/L (22-30); Chloride 107 mmol/L (98-107); Estimated Glomerular Filt Rate > 60; Glucose 74 mg/dL (65-105); Potassium 4.3 mmol/L (3.4-5.0); Sodium 134 mmol/L (137-145); Uric Acid 3.2 mg/dL (2.5-7.5)
--- NOTE | 2021-01-17 10:38 | PC.NURSE ---
Jax Pineda [facility] informed of pt's BP's today. Informed NST was initially started at 0600 by steward/stewardess night, but was non-reactive and when pt's room was entered to adjust FHT's pt had been sleeping. Decision made to restart NST after pt had eaten breakfast. NST was resumed after breakfast, but remains non-reactive. Pt's states that baby doesn't like to pass its NST in the morning. Reviewed tracings from yesterday. NST in the am was non-reactive, afternoon was reactive, and 2255 NST was reactive. OK to discontinue monitoring at this time, but if NST isn't reactive this afternoon, she will need a BPP.
--- NOTE | 2021-01-17 17:57 | PC.NURSE ---
1730--Pt c/o headache that is not relieved with Tylenol or application of ice bag. Order given for Fioricet. K-pad initiated. Pt lying on left side.
--- NOTE | 2021-01-17 20:06 | PC.NURSE ---
report given to riana stearns rn from [facility] via telephone. st still en route and eta in about 30 minutes.
[2021-01-17 20:14] LABS: Hematocrit 37.9 % (37.0-47.0); Hemoglobin 12.6 g/dL (12.0-15.0); Mean Corpuscular HGB Conc 33.2 g/dl (32-36); Mean Corpuscular Volume 90.2 fl (80-100); Mean Platelet Volume 11.1 fl (7.4-10.4); Platelet Count Result 177 k/mm3 (150-375); Red Cell Distribution Width 13.5 % (11.5-14.5); White Blood Count 7.3 K/mm3 (4.5-10.0)
[2021-01-17] MEDS: MAGNESIUM SULF 4 GM/WATER100ML 4 GM/100 ML BAG IVPB (20:14)
[2021-01-17] MEDS: LACTATED RINGERS 1,000 ML 75 ML IV CONT (20:16)
--- NOTE | 2021-01-17 20:18 | PM.OBPNVD ---
OB - PN: Subj Subjective Date/time seen: 01/17/21 20:18 called to bs, pt c/o headache, no improvement after tylenol and fioricet, pt does have hx of migraines, no c/o visual changes or epigastric pain, feels overall unwell and now increase in facial and ankle edema, reflexes 3+ per RN. Bp currently 150/90, labs this am stable, per dr. max magnesium sulfate was started OB - PN: Obj Data Labs CBC & Chem 7: 01/17/21 20:05 01/17/21 08:54 Labs: Laboratory Results - last 24 hr 01/17/21 01/17/21 01/17/21 08:54 08:54 20:05 WBC 7.3 RBC 4.20 Hgb 12.6 Hct 37.9 MCV 90.2 MCH 30.0 MCHC 33.2 RDW 13.5 Plt Count 154 177 MPV 11.0 H 11.1 H Sodium 134 L Potassium 4.3 Chloride 107 Carbon Dioxide 24 Anion Gap 3 L BUN 7 Creatinine 0.50 L Estim Creat Clear Calc Not Reportable Estimated GFR > 60 Glucose 74 Uric Acid 3.2 Calcium 8.9 Total Bilirubin 0.7 AST 19 ALT 11 Alkaline Phosphatase 107 Total Protein 6.0 L Albumin 3.1 L OB - PN A/P Time Spent With Patient Time: Total time spent is greater than 50% in coordination of care (as documented) at patient's floor/unit and/or counseling patient: at 33.6 weeks gestation severe preeclampsia with severe features magnesium sulfate started discussed with dr max and then with pt and will plan transfer to [facility], transfer excepted and report given to Dr. Wu. Review of Systems Review of Systems: All systems reviewed & are unremarkable except as noted in HPI and below Exam Const: General: cooperative Nutritional Appearance: average body habitus Limitations: no limitations Eyes: General: appearance normal, both eyes and all related structures Neck: Neck: normal visual inspection Resp: Effort & Inspection: normal respiratory effort and able to speak in complete sentences Auscultation: clear to auscultation bilaterally Cardio: Rate: regular rate Rhythm: regular rhythm Heart sounds: S1 normal heart sound present and S2 normal heart sound present GI: Inspection: normal to inspection Back/Spine/Pelvis: Back: no CVA tenderness Skin: General skin exam: normal color Neuro: General: patient oriented x3 Deep tendon reflexes (DTR's): Right patellar reflex intensity grade: 3+ and Left patellar reflex intensity grade: 3+ Extrem: Right lower extremity: edema Details: non-pitting and 1+ Left lower extremity: edema Details: non-pitting and 1+ Psych: Affect: normal affect Attitude: cooperative Thought process: Normal thought process present Thought content: Yes Normal thought content present Insight: Good insight present (Psych) Judgement: Good judgement present (Psych)
[2021-01-17 20:27] LABS: Alanine Aminotransferase 13 U/L (4-35); Albumin Level 3.4 g/dL (3.5-5.1); Alkaline Phosphatase 121 U/L (38-126); Anion Gap 2 mmol/L (8-16); Aspartate Amino Transferase 21 U/L (14-36); Bilirubin,Total 0.7 mg/dL (0.2-1.3); Blood Urea Nitrogen 7 mg/dL (7-17); Calcium 8.9 mg/dL (8.4-10.2); Carbon Dioxide 25 mmol/L (22-30); Chloride 107 mmol/L (98-107); Estimated Glomerular Filt Rate > 60; Glucose 90 mg/dL (65-105); Potassium 3.9 mmol/L (3.4-5.0); Sodium 134 mmol/L (137-145); Uric Acid 3.4 mg/dL (2.5-7.5)
[2021-01-17] MEDS: MAGNESIUM SULF 20GM/WATER500ML 500 ML 50 MG IV CONT (20:42)
--- NOTE | 2021-01-17 21:05 | PC.NURSE ---
[facility] transport team arrived on unit. emmie stearns rn given pt udpate. daryn ocampo called ashley hernandez for consult. rn was instructed to hold iv labetalol and administer 300mg oral labetalol now.
--- NOTE | 2021-02-01 08:00 | PM.OBPNVD ---
OB - PN: Subj Subjective Date/time seen: 02/01/21 08:00 OB - PN: Obj Data Labs CBC & Chem 7: 01/17/21 20:05 01/17/21 20:05 OB - PN A/P Time Spent With Patient Time: Total time spent is greater than 50% in coordination of care (as documented) at patient's floor/unit and/or counseling patient: Pt transferred
--- NOTE | 2021-02-01 12:23 | P.DS_ITS ---
DS: Admitting Diagnosis Admitting Diagnosis Admitting Diagnosis: preeclampsia DS: Discharge Diagnosis Discharge Diagnosis (1) Preeclampsia: Code(s): O14.90 - Unspecified pre-eclampsia, unspecified trimester Status: Acute OB - DS: Summary OB Procedures : Other (preeclampsia) OB Procedures Intrapartum: Other (transfer) OB Procedures: : None Time Spent with Patient Time attestation: Total time spent providing and/or coordinating discharge services: Discharge Plan Discharge Attending physician on discharge: Soledad Hector Consulting providers: Dara Pineda Discharging Clinician: Dara Pineda Patient Disposition: [facility] Hospital Activity: pelvic rest Diet: as tolerated Discharge Medications: Continued ondansetron 4 mg tablet,disintegrating 4 mg PO Q8H PRN (Reason: nausea and vomiting) Qty: 30 RF: 0 metoclopramide HCl 10 mg tablet 10 mg PO Q6H PRN (Reason: nausea and vomiting) Qty: 30 RF: 0 metoclopramide HCl [Reglan] 10 mg tablet 10 mg PO Q6H PRN (Reason: nausea and vomiting) Qty: 20 RF: 0 Date of admission: 01/04/21 13:41 Primary Care Provider: PHYSICIAN,AUTO WINDER Admitting Provider: Soledad Hector Attending physician on admission: Soledad Hector Condition: Serious
--- NOTE | 2021-02-14 08:51 | P.TS_ITS ---
Transfer Discharge Sum: Prov Provider Date of admission: 01/04/21 13:41 Primary care physician: PROGRAM AIDE GROUP WORK PHYSICIAN Admitting clinician: Soledad Hector MD DS: Admitting Diagnosis Admitting Diagnosis Admitting Diagnosis: preeclampsia, growth restriction, breech/transverse presentation DS: Discharge Diagnosis Discharge Diagnosis (1) Severe pre-eclampsia: Code(s): O14.10 - Severe pre-eclampsia, unspecified trimester Status: Acute (2) affected by growth restriction: Code(s): O36.5990 - Maternal care for other known or suspected poor growth, unspecified trimester, not applicable or unspecified Status: Acute Transfer Discharge Sum: Med Medications Active and Home Medications: Home Medications metoclopramide HCl [Reglan] 10 mg PO Q6H PRN #20 tablet 01/04/20 [Rx Confirmed 01/07/21] metoclopramide HCl 10 mg PO Q6H PRN #30 tablet 01/07/20 [Rx Confirmed 01/07/21] ondansetron 4 mg PO Q8H PRN #30 tablet 01/07/20 [Rx Confirmed 01/07/21] Transfer Discharge Sum: Hosp Hospital Course Hospital course: Triny Finch is a 35 year old female who has been hospitalized with preeclampsia, transfer had been recommended and declined previously, today on evaluation pt appears to have increased facial and pedal edema and increased blood pressures. Pt complaints of a headache that is not resolving after medication. Discussed with patient the severity of preeclampsia and the risks to her health including seizure and , rec pt to be transferred to [place] after collaborating care with Dr. Hector. Pt agreed and [place] agreed to transfer and report given. Pt to be transferred by ambulance Time Spent with Patient Time attestation: Total time spent providing and/or coordinating transfer services: Exam Const: General: cooperative and ill appearing (facial swelling) acutely Orientation/consciousness: patient oriented x3 Resp: Effort & Inspection: normal respiratory effort : OB/external & speculum: Deferred OB/external & speculum exam Skin: General skin exam: normal color Neuro: General: patient oriented x3 Extrem: Right lower extremity: ankle Details: edema and foot Details: edema Left lower extremity: ankle Details: pitting edema and foot Details: edema Psych: Appearance: grossly normal Mental Status: mental status grossly normal Affect: normal affect Thought process: Normal thought process present Thought content: Yes Normal thought content present
== END 2021-01-17 21:25 | disposition short-term general hospital (02) | DRG 566 ==
LOC: ANHOBOP 13:45 → ANHOBPP 01-05 11:20
PROVIDERS: Advanced Practice Midwife; Admitting Provider Obstetrics & Gynecology; Visit Provider Obstetrics & Gynecology
DX: O14.13 Severe pre-eclampsia, third trimester (principal); O32.1XX0 Maternal care for breech presentation, not applicable or unspecified; Z3A.32 32 weeks gestation of pregnancy; O36.5930 Maternal care for other known or suspected poor fetal growth, third trimester, not applicable or unspecified
CPT/HCPCS: 36415; 59025; 76816; 76819; 76820; 80053; 81001; 82570; 84156; 84550; 85025; 85027; 85049; 85055; 87086; 87088; 99199; A9270; J3475; J7120

== ENCOUNTER 2021-10-23 13:24 | Emergency (ER) | payer OTHER, SELFPAY ==
[2021-10-23 13:39] VITALS: BP 132/84; PULSE 82; RESP 16; TEMP 36.8; O2SAT 99
--- NOTE | 2021-10-23 13:58 | ED.URI ---
HPI - URI/Sore Throat General Chief Complaint: Upper Respiratory Infection Stated Complaint: Headache,Diarrhea,Cough Time Seen by Provider: 10/23/21 14:00 Source: patient, RN notes reviewed and old records reviewed Mode of arrival: ambulatory Limitations: no limitations History of Present Illness HPI Narrative: 35-year-old female presents with concerns over COVID-19. Patient reports that she tested positive last night but her job will not accept that and needs a more accurate test. Patient complains of 4 days of sore throat, cough, headache and generalized body aches. Denies fevers. Has been taking DayQuil with some relief. Does not have a primary care provider denies any past medical or surgical history MD elicited complaint: cough and sore throat Related Data Allergies Allergy/AdvReac Type Severity Reaction Status Date / Time No Known Allergies Allergy Verified 01/07/20 08:43 Review of Systems Review of Systems: All systems reviewed & are unremarkable except as noted in HPI and below Constitutional: Constitutional: Reports no additional constitutional complaints, Denies chills and Denies fever(s) Eyes: Eyes: Reports no additional eye complaints ENT: Reports system reviewed and no additional complaints, except as documented, Denies dizziness, Denies nasal congestion and Denies sore throat Cardiovascular: Cardiovascular: Reports no additional cardiovascular complaints Respiratory: Respiratory: Reports as per HPI, Reports cough and Denies dyspnea Gastrointestinal: Gastrointestinal: Reports no additional gastrointestinal complaints, Denies abdominal pain, Denies nausea and Denies vomiting Genitourinary: Genitourinary: Reports no additional female genitourinary complaints Musculoskeletal: Musculoskeletal: Reports no additional musculoskeletal complaints Integumentary/Breasts: Skin/Breast: Reports system reviewed and no additional complaints, except as docu Neurologic: Reports system reviewed and no additional complaints, except as documented Psychiatric: Psychiatric: Reports no additional psychiatric complaints Allergic/Immunologic: Allergic/Immunologic: Reports no additional allergic/immunologic complaints PMFSH Past Medical History Medical History Healthy female Surgical History Surgical History No history of previous surgery Social History Social History Smoking status: Never smoker Gender identity (if verbalized by the patient): Female Spiritual care concerns: No Comments At the time of my signature, I reviewed and agree with the nursing past medical, surgical, social, and family history. There is no relevant family history pertinent to the patient complaint. Exam Const: General: healthy appearing, no acute distress and alert Nutritional Appearance: well nourished Orientation/consciousness: patient oriented x3 Limitations: no limitations HENMT: Head: normal to inspection Ears: external ears normal, TM's normal bilaterally and EAC's normal Eyes: Conjunctivae: conjunctivae normal Pupils: Equal, round and reactive pupils present Neck: Neck: normal visual inspection, no lymphadenopathy and no meningeal signs Chest: Chest palpation & inspection: normal inspection of the chest Resp: Effort & Inspection: normal respiratory effort and no use of accessory muscles Auscultation: clear to auscultation bilaterally, no crackles, no rales, no rhonchi and no wheezes Cardio: Rate: regular rate Rhythm: regular rhythm : General: Yes no CVA tenderness Back/Spine/Pelvis: Back: no CVA tenderness Skin: General skin exam: normal color Rashes: no rashes Wounds: no wounds Neuro: General: patient oriented x3, moves all extremities, no meningeal signs and no focal motor deficits Speech: normal speech Gait exam (Neuro): Normal gait present Extrem: General: normal
[2021-10-25 03:58] LABS: SARS-CoV-2 RNA PCR Positive
== END 2021-10-23 14:25 | disposition home or self-care (01) ==
PROVIDERS: Emergency Provider Nurse Practitioner
DX: U07.1 COVID-19 (principal)
CPT/HCPCS: 99213; C9803; G0463; U0003; U0005

== ENCOUNTER 2022-06-23 07:27 | Outpatient (CLI) | payer OTHER, SELFPAY ==
--- NOTE | 2022-06-23 07:37 | ECHO_ITS ---
Patient Info Name: Triny Finch Age: 36 years : 1985 Gender: Female Ht: 62 in Wt: 180 lbs BSA: 1.92 m2 HR: 68 bpm BP: 119 / 74 mmHg Technical Quality: Good Exam Date: 06/23/2022 7:59 AM Exam Location: [facility] Patient Status: Outpatient Admit Date: 06/23/2022 Staff Ordering Physician: Juliet Ballesteros NP Bisque Grader: Brook Black RDCS Attending Provider: Juliet Ballesteros NP Exam Type: CA echo doppler color flow Study Info Indications - chest pain Complete two-dimensional, color flow and Doppler transthoracic echocardiogram is performed. Summary 1. Complete two-dimensional, color flow and Doppler transthoracic echocardiogram is performed. 2. Left ventricular chamber dimension is normal. 3. Left ventricular systolic function is normal, estimated at 60-65%. 4. The left ventricular diastolic function is normal. 5. E/e' 6 is not elevated. 6. No pulmonary hypertension, estimated pulmonary arterial systolic pressure is 27 mmHg. Left Ventricle E/e' 6 is not elevated. Left ventricular chamber dimension is normal. Left ventricular systolic function is normal, estimated at 60-65%. The left ventricular diastolic function is normal. Right Ventricle Right ventricular systolic function is normal and with normal TAPSE 2.1 cm. Right ventricular chamber dimension is normal. Left Atria Left atrial chamber dimension is normal. Right Atria Right atrial chamber dimension is normal. Aortic Valve The aortic valve is trileaflet. There is no aortic valve stenosis. There is no aortic valve regurgitation. Pulmonic Valve There is no pulmonic regurgitation. Mitral Valve There is no mitral valve stenosis. There is no mitral valve regurgitation. Tricuspid Valve There is no tricuspid valve regurgitation. No pulmonary hypertension, estimated pulmonary arterial systolic pressure is 27 mmHg. Pericardium/Pleural There is no pericardial effusion. Inferior Vena Cava Normal inferior vena cava with >50% collapse upon inspiration consistent with normal right atrial pressure, 5 mmHg. Aorta The aortic root size at the sinus of Valsalva is normal. Left Ventricular Outflow Tract Name Value Normal LVOT 2D LVOT Diameter 2.0 cm LVOT Doppler LVOT Peak Gradient 5 mmHg LVOT Mean Gradient 2 mmHg LVOT VTI 22 cm LVOT VTI/AV VTI Ratio 0.8 LVOT Stroke Volume 69 ml LVOT CO 13.0 l/min LVOT CI 6.8 l/min/m2 Pulmonic Valve Name Value Normal PV Doppler PV Peak Gradient 2 mmHg Mitral Valve Name Value Normal
--- NOTE | 2022-06-23 07:38 | ECG_ITS ---
Measurements Intervals [place] Rate: 62 P: 56 IN: 155 QRS: 31 QRSD: 100 T: 50 QT: 421 QTc: 430 Interpretive Statements SINUS RHYTHM NORMAL ECG NO PREVIOUS ECG AVAILABLE FOR COMPARISON Electronically Signed On 06-23-2022 10:07:18 CDT by Severino Chapa M.D.
== END 2022-06-23 07:28 | disposition home or self-care (01) ==
PROVIDERS: PCP Nurse Practitioner Family; Visit Provider Nurse Practitioner Family
DX: R07.9 Chest pain, unspecified (principal); R42 Dizziness and giddiness
CPT/HCPCS: 93005; 93306